=== PATIENT | male | born 1940 | race Caucasian/White ===

== ENCOUNTER 2016-07-17 12:14 | Observation (INO) ==
[2016-07-17] MEDS ORDERED: VANCOMYCIN 1,000 MG in 0.9 % SODIUM CHLORIDE 250 ML IV ONE (12:43)
[2016-07-17] MEDS ORDERED: PIPERACILLIN SODIUM/TAZOBACTAM 3.375 GM in DEXTROSE 5% IN WATER 50 ML IV SCH ×3 (12:45→15:37)
[2016-07-17 13:38] LABS: Basophils # (Auto) 0 K/mcL (0.0-0.3); Basophils % (Auto) 0.2 % (0.0-2.0); Eosinophils # (Auto) 0.1 K/mcL (0.0-0.7); Eosinophils % (Auto) 1.2 % (0.0-7.0); Granulocytes % (Auto) 80.1 % (38.0-78.0); Lymphocytes # (Auto) 0.7 K/mcL (1.5-4.8); Lymphocytes % (Auto) 9.8 % (15.5-49.0); Mean Cell Volume 87.8 fL (80.0-100.0); Mean Corpuscular HGB Conc 32.1 g/dL (31.0-36.0); Mean Corpuscular Hemoglobin 28.2 pg (26.0-34.0); Monocytes # (Auto) 0.6 K/mcL (0.1-0.9); Monocytes % (Auto) 8.7 % (1.0-9.0); Platelet Count 319 K/mcL (140-440); RBC 3.04 M/mcL (4.50-5.90)
--- NOTE | 2016-07-17 13:49 | XRay Report ---
CLINICAL INFORMATION: Calcaneal cutaneous ulcer COMPARISON: None. FINDINGS: Moderate pes planus is appreciated. There is no specific radiographic evidence of osteomyelitis or other focal osseous abnormality. Mild degenerative changes noted in the MTT and interphalangeal joints. There is moderate diffuse soft tissue swelling - particularly the forefoot and midfoot compatible with edema or cellulitis. IMPRESSION: No specific evidence of osteomyelitis. Diffuse forefoot and midfoot soft tissue swelling is suggestive of edema or cellulitis. Interpreted and Authenticated by: Jose Manuel Chow 07/17/16
--- NOTE | 2016-07-17 13:51 | XRay Report ---
CLINICAL INFORMATION: Cough COMPARISON: 04/13/2016 portable chest FINDINGS: The heart is mildly enlarged, but unchanged. Mediastinum and pulmonary vessels are normal. Lungs are clear. No effusions. Malunified old left-sided rib fractures seen - as before. IMPRESSION: Mild stable cardiomegaly. No acute disease Interpreted and Authenticated by: Jose Manuel Chow 07/17/16
--- NOTE | 2016-07-17 13:55 | XRay Report ---
CLINICAL INFORMATION: Cutaneous calcaneal ulcer COMPARISON: None. FINDINGS: There is no specific radiographic evidence of osteomyelitis or other focal osseous abnormalities. Pes planus is noted. There is mild degenerative change in the MTT and interphalangeal joints. Moderate diffuse soft tissue swelling noted in the forefoot and midfoot. IMPRESSION: Forefoot and midfoot soft tissue swelling typically indicative of cellulitis or edema. No specific radiographic evidence of osteomyelitis. Interpreted and Authenticated by: Jose Manuel Chow 07/17/16
[2016-07-17 14:01] LABS: ALT/SGPT 8 U/l (0-40); Albumin 3.2 gm/dL (3.2-5.2); Albumin/Globulin Ratio 1.1 (1.0-2.3); Alkaline Phosphatase 65 U/L (39-117); Blood Urea Nitrogen 59 mg/dl (8-23)
[2016-07-17 14:09] LABS: Estimated Average Glucose(eAG) 212 mg/dL
[2016-07-17] MEDS ORDERED: MAGNESIUM HYDROXIDE 30 ML ORAL.SUSP PO PRN (15:37)
[2016-07-17] MEDS ORDERED: DEXTROSE 50% 50 ML VIAL IV PRN (15:37)
[2016-07-17] MEDS ORDERED: VANCOMYCIN PER PHARMACY IV ONE (15:37)
[2016-07-17] MEDS ORDERED: NALOXONE HCL 0.4 MG/ML VIAL IV PRN (15:37)
[2016-07-17] MEDS ORDERED: ONDANSETRON 4 MG/2 ML VIAL IV PRN (15:37)
[2016-07-17] MEDS ORDERED: DOCUSATE SODIUM 100 MG CAPSULE PO PRN (15:37)
--- NOTE | 2016-07-17 15:55 | Internal Med History&Physical ---
Medical - H&P: HPI Patient information: Note initiated : 07/17/16 at 3:48 pm Service Date, if different from initiated Date: [] Patient: Herve Curry 75 y/o M admitted on 07/17/16 for Heel Pressure Ulcers Bilateral. Chief Complaint: [] History of present illness: Mr. Curry is a 75 year old male as sent over to the ER from the wound care clinic today, for significantly worsening bilateral heel decubiti, in the setting of uncontrolled diabetes. The patient also reported fever at the long term, cough. is ER evaluation was fairly unremarkable except that he did have a significant drop in his hematocrit. the patient is mostly nonverbal He is currently living the ID nursing facility , as his cannot really deal with his behavior issues anymore. He had mild heel decubiti before, and was followed at the wound care clinic, and was doing quite well. However over the last couple of weeks, his feels like he is spending all of his time in a wheelchair with his heels bumping up against the footplates She says the staff really have no luck keeping him in bed, as he gets very agitated when he cannot get out of bed. She believes they started him on twice a day morphine recently, as they decided perhaps some of his behaviors were due to pain, and that does seem to help somewhat. However, today she went to visit him, and he had large blisters on both heels and a very swollen and red left foot. He was sent in to see Dr. Anderson in the wound care clinic today, who sent him over to the emergency room for consideration of admission.The patient is reallyunable or unwilling to participate in the history. He denies significant pain. His says he has not complained of recent fevers or chills, headaches or dizziness, sore throat or cough, chest pain or shortness of breath, GI or symptoms. However she is not sure he would tell anyone if he did have those problems. She has noticed some increased lower extremity edema lately. Medical History likely dementia. Decubitus Ulcer (Chronic) Diabetes mellitus (Chronic) Fracture of both hips (Acute) History of skin cancer (Chronic) 04/21/2010 Pre-cancer spots removed History of malignant neoplasm of skin (Chronic) 07/04/2010 Melanoma forehead Urinary incontinence (Chronic) 12/18/2012 Closed rib fracture (Chronic) 03/16/2014 5-10 Lumbosacral spondylosis without myelopathy (Chronic) Low back pain (Chronic) dorsal column stimulator, pain clinic injections Closed hip fracture (Chronic) 12/09/2014-Left Hip Diabetes mellitus, type II (Chronic) 12/27/1993 Insulin Dependent CVA (cerebrovascular accident) (Chronic) 02/2004, 04/2004 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 Spinal cord surgery: 03/01/2010, 10/24/2010, 12/14 Medial branch block, facet joint injection; 10/24/2010: RFTC Nerve Burning Back History of knee surgery (Chronic) 10/25/05 Rt. arthroscopy History of knee replacement (Chronic) Jul 2008 History of hernia surgery (Chronic) 12/1986, 05/1987, 04/1995 History of colonoscopy (Chronic) 09/25/2012 Micro: Multiple Polyps. Colonic Polyps History of appendectomy (Chronic) childhood Medication List Lis C 500 mg PO Eye Cap PO Tanner Red 500 mg PO Prilosec Oral PO Vitamin B12 1000 mcg PO amitriptyline 25 mg tablet 25 mg PO QHS (his thinks this may have been stopped) amlodipine 5 mg tablet 5 mg PO QDAY aspirin 324 mg mg chewable tablet 162 mg (2 x 81 mg) PO QDAY beta carotene 25,000 unit capsule 25,000 units PO QDAY chromium picolinate 500 mcg capsule 500 mcg PO QDAY furosemide 20 mg tablet 40 mg PO QDAY insulin glargine 100 unit/mL subcutaneous solution 25 units (0.35 mL) Sub-Q QHS insulin lispro - novoLog 15 units subcutaneous 3 times a day losartan 50 mg tablet 50 mg PO BID multivitamin PO oxybutynin chloride ER 10 mg tablet,extended release 24 hr 10 mg PO QDAY (or Vesicare 5 mg daily) silver sulfadiazine 1 % topical cream 1 applic Topical QDAY silver sulfadiazine 1 % topical cream 1 applic Topical BID simvastatin 20 mg tablet 20 mg PO QPM valproic acid 250 mg twice a day Cranberry tabs 1 by mouth twice a dayOmeprazole 20 mg before breakfast Senna 2 tabs daily at bedtime Abilify 10 mg every morning Melatonin 3 mg 2 tabs daily at bedtime MiraLAX 17 g when necessary Psyllium 3 capsules twice a day Allergies/Adverse Reactions meperidine [From Demerol] Allergy (Unknown, Verified 04/12/15 14:01) Unknown tape Allergy (Unknown, Uncoded 04/12/15 14:01) Unknown Family History Sister Malignant neoplasm of breast Unknown Congestive heart failure Mother Dementia, Onset Age: 87 of complications of the same , the patient's also think she had heart issues. Cardiac disease Brother Cerebrovascular accident The patient's grandmother had diabetes Social History Smoking Status: Former smoker, and quit 20 years ago. He quit alcohol many years ago. He currently lives at the ID nursing facility. He does not use drugs. Medical - H&P: Meds Home Medications Medication Instructions Recorded Confirmed Type beta carotene 25,000 unit capsule 25,000 unit PO QDAY cap 02/22/15 07/17/16 History blood sugar diagnostic strips See Dose Instructions .ROUTE 02/22/15 07/17/16 History .MEDSUPPLY multivitamin tablet 1 each PO DAILY 02/22/15 07/17/16 History omeprazole 20 mg capsule,delayed 20 mg PO ACB 02/22/15 07/17/16 History release Eye Cap 1 drp OD DAILY 07/05/15 07/17/16 History Vitamin B-12 1,000 mcg PO QHS 07/05/15 07/17/16 History ascorbate calcium 500 mg tablet 1,000 mg PO DAILY 07/05/15 07/17/16 History chromium picolinate 500 mcg capsule 200 mcg PO QDAY 07/05/15 07/17/16 History insulin glargine 100 unit/mL 25 unit SUB-Q QHS ml 07/05/15 07/17/16 History subcutaneous solution Cranberry Conc/C/Bacill Coag 1 each PO BID 04/11/16 07/17/16 History [Cranberry Tablet] Psyllium Husk [Fiber Laxative] 3 capsule PO BID 04/11/16 07/17/16 History Sennosides [Senna Laxative] 2 tab PO HS 04/11/16 07/17/16 History Solifenacin Succinate [Vesicare] 5 mg PO DAILY 04/11/16 07/17/16 History Aripiprazole [Abilify] 10 mg PO QAM 07/17/16 07/17/16 History Furosemide [Lasix] 20 mg PO QAM 07/17/16 07/17/16 History Insulin Aspart [Novolog Flexpen] 15 unit SQ TID 07/17/16 07/17/16 History Melatonin/Pyridoxine HCl (B6) 2 each PO QHS 07/17/16 07/17/16 History [Melatonin 3 mg Tablet] Polyethylene Glycol 3350 [Miralax] 17 gm PO ONCE 07/17/16 07/17/16 History Valproic Acid (As Sodium Salt) 250 mg PO BID 07/17/16 07/17/16 History [Valproic Acid] Vitamin E [Vitamin E] 800 mg QAM 07/17/16 07/17/16 History Allergies Allergy/AdvReac Type Severity Reaction Status Date / Time meperidine [From Demerol] AdvReac Intermediate Agitated Verified 07/17/16 17:52 quetiapine [From Seroquel] AdvReac Intermediate Agitated Verified 07/17/16 17:52 Medical - H&P: Exam - Constitutional Vitals: Temp Pulse Resp BP Pulse Ox 98.7 F 88 20 145/66 98 07/17/16 12:15 07/17/16 15:07 07/17/16 15:07 07/17/16 15:07 07/17/16 15:07 Exam: On exam, he is elderly man in no acute distress. He doespull on the bed without rails periodically, and nonverbally asked his to let him get up from bed.head: Normocephalic, atraumatic. Eyes: PERRLA, EOMI, anicteric. Ears: There is bilateral cerumen occluding the TMs. Pharynx: Shows dry mucosa. Teeth are in fair condition. Neck: Is supple, without obvious JVD, thyromegaly, bruits, lymphadenopathy. Cardiac exam: Shows regular rate and rhythm, with normal S1 and S2. No murmurs , rubs, gallops are noted. Lungs are clear to auscultation, without obvious rales, rhonchi, wheezes. Abdomen: Is soft and nontender with no obvious masses. Bowel sounds are active. Extremities: The right foot has a very large right heel blister which appears to ruptured. There is no significant surrounding erythema. The left foot also has a very large blister which appears intact. There is swelling of the foot, as well as increased warmth and tenderness and redness. The redness extends across the dorsum of the foot and up onto the medial maloney. Neurologic: The patient is awake, and follows most commands, but rarely speaks. It is unclear if he is oriented, and his family feels he is often confused and forgetful. Motor exam is grossly nonfocal. Medical - H&P: Reslt - Labs CBC & Chem 7: 07/17/16 13:00 07/17/16 13:00 Labs: lactic acid is normal at 0.9 BNP is elevated at 1170 Right foot x-ray shows diffuse forefoot and midfoot soft tissue swelling suggestive of edema or cellulitis. X-ray of the left foot has similar findings. chest x-ray shows mild stable cardiomegaly, and otherwise no acute disease. Medical - H&P: A/P (1) Decubitus ulcer of heel, bilateral Current visit: Yes Status: Acute (2) DM (diabetes mellitus), type 2, uncontrolled Current visit: Yes Status: Acute (3) History of CVA (cerebrovascular accident) Current visit: Yes Status: Acute (4) CKD (chronic kidney disease) Current visit: Yes Status: Acute (5) Anemia of acute infection Current visit: Yes Status: Acute #1. Infectious disease. -This patient presents with bilateral foot swelling suggestive of cellulitis, in the setting of uncontrolled diabetes. He also reports recent fever, and does have a history of a UTI.urine and blood cultures are pending. -Dr. Anderson's evaluated the patient, I will taken to the OR for debridement tomorrow. For tonight, the patient will be covered with IV Zosyn and vancomycin. #2. Renal. This patient presents with acute on chronic renal insufficiency, associated with hyperkalemia. Follow as we hydrate. #3. Endocrine. -Type 2 diabetes, poorly controlled, as evidenced by elevated A1c. Continue insulin and additional sliding scale. -Carbohydrate consistent diet. #4. Hematologic. -Anemia chronic, with fairly acute worsening. check stool cards. The patient may well have bone marrow suppression. #5. History of chronic constipation. #6. History of shingles. #7. Neurologic. -Patient has history of past stroke. #8. CODE STATUS: The patient's says she wants to discuss this further with her sons She is leaning towards a no code order, but is not quite ready to give that order. this visit took approximately 65 minutes, to review the patient's case with the ER Betty, as well as with Dr. Anderson, interview and examine the patient and discussed plan of care of his family, and write orders.
[2016-07-17] MEDS: 0.45 % SODIUM CHLORIDE 1,000 ML IV SCH (17:01)
[2016-07-17] MEDS: PIPERACILLIN SODIUM/TAZOBACTAM 2.25 GM in DEXTROSE 5% IN WATER 50 ML IV SCH ×2 (18:03→23:40)
[2016-07-17] MEDS: INSULIN LISPRO 1 UNIT/0.01 ML UNIT SQ SCH ×3 (18:34→21:39)
--- NOTE | 2016-07-17 20:35 | General Surgery Consult Note ---
History of Present Illness Patient information: Note initiated : 07/17/16 at 8:24 pm Service Date, if different from initiated Date: [] Patient: Herve Curry 75 y/o M admitted on 07/17/16 for Heel Pressure Ulcers Bilateral. Chief Complaint: []Established patient at wound clinic. He was seen in clinic for routine f/u today. There was an INTERVAL CHANGE in his condition since last encounter in clinic two weeks ago. He had sustained a non syncopal fall one week ago. Evaluated at [facility] and sent back to [facility] after CT scan and approximation of right fore head laceration. Patient since then had been mainly sitting in his chair or recliner and hitting his heels and legs against chair. The pressure ulcer site of right posterior heel had almost healed, BUT NOW there is a new lesion with infected large, painful blister at the site. Additionally he has a large new blister over his left posterior heel site. His blood sugars are high and he has had fever. He needs IV antibiotics, stabilization of his medical problems and surgical debridement. I spoke at length with his LEYDA, and his surgery is scheduled for 2016 Review of Systems - Constitutional fever(s), frequent falls, lethargy, malaise, other (Infected pressure ulcer site right heel and new blister left posterior heel ) - Respiratory cough, chest congestion - Integumentary new lesions, non-healing lesions, wounds - Endocrine other (Elevated blood sugars. Uncontrolled diabetes ) Past History Past medical history: IDDM, HTN , Pressure Ulcer heel. Medications and Allergies Home Medications Medication Instructions Recorded Confirmed Type beta carotene 25,000 unit capsule 25,000 unit PO QDAY cap 02/22/15 07/17/16 History blood sugar diagnostic strips See Dose Instructions .ROUTE 02/22/15 07/17/16 History .MEDSUPPLY multivitamin tablet 1 each PO DAILY 02/22/15 07/17/16 History omeprazole 20 mg capsule,delayed 20 mg PO ACB 02/22/15 07/17/16 History release Eye Cap 1 drp OD DAILY 07/05/15 07/17/16 History Vitamin B-12 1,000 mcg PO QHS 07/05/15 07/17/16 History ascorbate calcium 500 mg tablet 1,000 mg PO DAILY 07/05/15 07/17/16 History chromium picolinate 500 mcg capsule 200 mcg PO QDAY 07/05/15 07/17/16 History insulin glargine 100 unit/mL 25 unit SUB-Q QHS ml 07/05/15 07/17/16 History subcutaneous solution Cranberry Conc/C/Bacill Coag 1 each PO BID 04/11/16 07/17/16 History [Cranberry Tablet] Psyllium Husk [Fiber Laxative] 3 capsule PO BID 04/11/16 07/17/16 History Sennosides [Senna Laxative] 2 tab PO HS 04/11/16 07/17/16 History Solifenacin Succinate [Vesicare] 5 mg PO DAILY 04/11/16 07/17/16 History Aripiprazole [Abilify] 10 mg PO QAM 07/17/16 07/17/16 History Furosemide [Lasix] 20 mg PO QAM 07/17/16 07/17/16 History Insulin Aspart [Novolog Flexpen] 15 unit SQ TID 07/17/16 07/17/16 History Melatonin/Pyridoxine HCl (B6) 2 each PO QHS 07/17/16 07/17/16 History [Melatonin 3 mg Tablet] Polyethylene Glycol 3350 [Miralax] 17 gm PO ONCE 07/17/16 07/17/16 History Valproic Acid (As Sodium Salt) 250 mg PO BID 07/17/16 07/17/16 History [Valproic Acid] Vitamin E [Vitamin E] 800 mg QAM 07/17/16 07/17/16 History Allergies Allergy/AdvReac Type Severity Reaction Status Date / Time meperidine [From Demerol] AdvReac Intermediate Agitated Verified 07/17/16 17:52 quetiapine [From Seroquel] AdvReac Intermediate Agitated Verified 07/17/16 17:52 Exam Temp Pulse Resp BP Pulse Ox 98.2 F 92 H 20 156/74 95 07/17/16 16:00 07/17/16 16:00 07/17/16 15:50 07/17/16 16:00 07/17/16 16:00 - General physical appearance well developed, well nourished, moderate pain - Eyes PERRL, normal ocular movement - ENT normal pinna, normal nares, normal mucosa, no congestion - Head Head exam IM: Present: atraumatic, normal inspection, normocephalic - Neck no masses, no bruits, trachea midline, no lymphadectomy, no venous distension - Cardiovascular Cardiovascular exam IM: Present: normal rate and rhythm, irregular rhythm - Respiratory normal expansion absent breath sounds: bilateral (Diminshed breath sounds both lung bases) - Abdomen Abdomen: Present: soft, non tender, bowel sounds - Integumentary Present: other (Ingected wound right psoterir heel with suppuration. Blister LEFT posterior heel ) - Neurologic Present: combative, confused, other (Moves all extremities and non focal normal neurological examination) - Musculoskeletal Present: other (No evidence of fractures both feet. ) Results - Labs 07/17/16 13:00 07/17/16 13:00 All other labs normal. Assessment and Plan (1) Pressure ulcer, heel, left, unstageable For surgical debridement , lavage and tissue samples for culture and pathology. Status: Acute (2) Pressure ulcer, heel, right, unstageable Status: Acute Priority: High (3) Decubitus ulcer of heel, bilateral Status: Acute Priority: High
[2016-07-17] MEDS ORDERED: NON FORMULARY MEDICATION 1 DOSE MISCELL (Cranberry Conc/C/Bacill Coag [Cranberry Tablet] 1 PO SCH (21:00)
[2016-07-17] MEDS: AMITRIPTYLINE 25 MG TABLET PO SCH (21:38)
[2016-07-17] MEDS: SIMVASTATIN 20 MG TABLET PO SCH (21:38)
[2016-07-17] MEDS: DIVALPROEX SODIUM 250 MG TAB.ER.24H PO SCH (21:38)
[2016-07-17] MEDS: SENNOSIDES 1 TABLET PO SCH (21:39)
[2016-07-17] MEDS: INSULIN GLARGINE, HUMAN 1 UNIT/0.01 ML SQ SCH (21:39)
[2016-07-17] MEDS: HEPARIN 5,000 UNIT/ML VIAL SQ SCH (21:39)
[2016-07-17] MEDS: MELATONIN PO SCH (21:49)
[2016-07-17] MEDS: PYRIDOXINE HCL PO SCH (21:49)
[2016-07-17] MEDS: 0.9 % SODIUM CHLORIDE 10 ML SYRINGE IV SCH (21:50)
[2016-07-17] MEDS: ACETAMINOPHEN 325 MG TABLET PO PRN (22:58)
[2016-07-18] MEDS: 0.45 % SODIUM CHLORIDE 1,000 ML IV SCH ×4 (01:13→23:40)
[2016-07-18 05:26] LABS: Mean Cell Volume 88.3 fL (80.0-100.0); Mean Corpuscular HGB Conc 32.1 g/dL (31.0-36.0); Mean Corpuscular Hemoglobin 28.3 pg (26.0-34.0); Platelet Count 328 K/mcL (140-440); RBC 3.15 M/mcL (4.50-5.90); Red Cell Distribution Width 15.1 % (11.5-14.5)
[2016-07-18 05:43] LABS: ALT/SGPT 7 U/l (0-40); Albumin 3.1 gm/dL (3.2-5.2); Alkaline Phosphatase 61 U/L (39-117); Bilirubin,Direct < 0.2 mg/dL (0.0-0.3); Blood Urea Nitrogen 57 mg/dl (8-23); Gamma Glutamyl Transpeptidase 11 U/L (8-61); Phosphorous 3.8 mg/dL (2.7-4.5); Uric Acid 7.2 mg/dL (2.5-8.0); Vancomycin,Random 10.1 ug/ml
[2016-07-18] MEDS: PIPERACILLIN SODIUM/TAZOBACTAM 2.25 GM in DEXTROSE 5% IN WATER 50 ML IV SCH ×4 (05:56→23:39)
[2016-07-18] MEDS: 0.9 % SODIUM CHLORIDE 10 ML SYRINGE IV SCH ×4 (05:56→22:15)
[2016-07-18 06:40] LABS: Anisocytosis 1+ (NONE SEEN); Band Neutrophils % 6 % (0-10); Eosinophils % (Manual) 2 % (0-7); Lymphocytes % 11 % (15-49); Monocytes % (Manual) 2 % (1-9); Platelet Estimate NORMAL (NORMAL); RBC Morphology ABNORM (NORMAL); Segmented Neutrophils % 79 % (38-78)
[2016-07-18] MEDS ORDERED: OMEPRAZOLE 20 MG CAPSULE PO SCH (07:30)
[2016-07-18] MEDS ORDERED: PANTOPRAZOLE 40 MG TABLET PO SCH (07:30)
[2016-07-18] MEDS ORDERED: DEXTROSE 50% 50 ML VIAL IV ONE (07:41)
[2016-07-18] MEDS ORDERED: INSULIN LISPRO 1 UNIT/0.01 ML UNIT SQ STA (07:42)
[2016-07-18] MEDS: INSULIN LISPRO 1 UNIT/0.01 ML UNIT SQ SCH ×7 (07:44→20:50)
[2016-07-18] MEDS: HEPARIN 5,000 UNIT/ML VIAL SQ SCH ×2 (08:02→20:49)
[2016-07-18] MEDS ORDERED: Solifenacin Succinate [Vesicare] 5 MG Tablet PO SCH (09:00)
[2016-07-18] MEDS ORDERED: amLODIPine 5 MG TABLET PO SCH (09:00)
[2016-07-18] MEDS ORDERED: PSYLLIUM HUSK 6 GM PACKET PO SCH (09:00)
[2016-07-18] MEDS ORDERED: MULTIVIT,THER IRON,CA,FA & MIN 1 TABLET PO SCH (09:00)
[2016-07-18] MEDS ORDERED: ASCORBIC ACID 500 MG TABLET PO SCH (09:00)
[2016-07-18] MEDS ORDERED: EYE OD SCH (09:00)
[2016-07-18] MEDS ORDERED: CYANOCOBALAMIN (VITAMIN B-12) 500 MCG TABLET PO SCH (09:00)
[2016-07-18] MEDS ORDERED: ARIPIPRAZOLE 5 MG TABLET PO SCH (09:00)
[2016-07-18] MEDS ORDERED: ASPIRIN 81 MG TAB.CHEW PO SCH (09:00)
[2016-07-18] MEDS ORDERED: FUROSEMIDE 20 MG TABLET PO SCH (09:00)
[2016-07-18] MEDS ORDERED: CHROMIUM PICOLINATE 200 MCG PO SCH (09:00)
[2016-07-18] MEDS ORDERED: VANCOMYCIN 1,000 MG in 0.9 % SODIUM CHLORIDE 250 ML IV ONE (09:00)
--- NOTE | 2016-07-18 09:36 | Emergency Department Note ---
General Adult HPI - General Chief complaint: Extremity Injury, Lower Stated complaint: Heel pressure ulcers bilateral Time Seen by Provider: 07/17/16 12:42 Source: family, other Mode of arrival: wheelchair Limitations: no limitations - History of Present Illness HPI Narrative: 75-year-old male from [facility] with several issues: 1. Cough congestion and wheeze 2 days. No fever. 2. Wounds at heels. Followed by wound care- pictures are on file and reviewed by me, recently bandaged. They request admission for IV antibiotics and surgical debridement 3. Numerous falls. He is on Abilify/morphine for aggressive behavior. all history is from chart and his ; his dementia limits history and review of systems - Related Data Home Medications Medication Instructions Recorded Confirmed beta carotene 25,000 unit capsule 25,000 unit PO QDAY cap 02/22/15 07/17/16 blood sugar diagnostic strips See Dose Instructions .ROUTE 02/22/15 07/17/16 .MEDSUPPLY multivitamin tablet 1 each PO DAILY 02/22/15 07/17/16 omeprazole 20 mg capsule,delayed 20 mg PO ACB 02/22/15 07/17/16 release Eye Cap 1 drp OD DAILY 07/05/15 07/17/16 Vitamin B-12 1,000 mcg PO QHS 07/05/15 07/17/16 ascorbate calcium 500 mg tablet 1,000 mg PO DAILY 07/05/15 07/17/16 chromium picolinate 500 mcg capsule 200 mcg PO QDAY 07/05/15 07/17/16 insulin glargine 100 unit/mL 25 unit SUB-Q QHS ml 07/05/15 07/17/16 subcutaneous solution Cranberry Conc/C/Bacill Coag 1 each PO BID 04/11/16 07/17/16 [Cranberry Tablet] Psyllium Husk [Fiber Laxative] 3 capsule PO BID 04/11/16 07/17/16 Sennosides [Senna Laxative] 2 tab PO HS 04/11/16 07/17/16 Solifenacin Succinate [Vesicare] 5 mg PO DAILY 04/11/16 07/17/16 Aripiprazole [Abilify] 10 mg PO QAM 07/17/16 07/17/16 Furosemide [Lasix] 20 mg PO QAM 07/17/16 07/17/16 Insulin Aspart [Novolog Flexpen] 15 unit SQ TID 07/17/16 07/17/16 Melatonin/Pyridoxine HCl (B6) 2 each PO QHS 07/17/16 07/17/16 [Melatonin 3 mg Tablet] Polyethylene Glycol 3350 [Miralax] 17 gm PO ONCE 07/17/16 07/17/16 Valproic Acid (As Sodium Salt) 250 mg PO BID 07/17/16 07/17/16 [Valproic Acid] Vitamin E [Vitamin E] 800 mg QAM 07/17/16 07/17/16 Cyanocobalamin (Vitamin B-12) 1,000 mcg SL DAILY 07/18/16 07/18/16 [Vitamin B-12] Previous Rx's Medication Instructions Recorded amlodipine 5 mg tablet 5 mg PO QDAY #90 tab 05/12/15 simvastatin 20 mg tablet 20 mg PO QPM #90 tab 10/18/15 amitriptyline 25 mg tablet 25 mg PO QHS #30 tab 12/01/15 Aspirin 324 mg PO QDAY 30 Days 04/16/16 Allergies Allergy/AdvReac Type Severity Reaction Status Date / Time meperidine [From Demerol] AdvReac Intermediate Agitated Verified 07/17/16 17:52 quetiapine [From Seroquel] AdvReac Intermediate Agitated Verified 07/17/16 17:52 Review of Systems Limitations: ROS unobtainable due to patients medical condition Past Medical History - Past Medical History Attestation: Yes: The following information was validated with the patient. Medical history: Reports: arthritis, CVA, dementia, diabetes, hyperlipidemia, hypertension, other (BPH) Surgical history ED: Reports: appendectomy, herniorrhaphy, hip replacement, knee replacement, vascular surgery, other (TURP) - Social History smoking status: Former smoker Physical Exam Patient is nonverbal mostly but will answer basic questions- poor historian. Patient will follow commands and cooperative for exam . Normocephalic atraumatic. Conjunctiva clear sclerae white and anicteric. No nasal discharge or congestion. Oropharynx pink and moist. Neck is supple without lymphadenopathy or thyromegaly. Heart is regular rate and rhythm no murmurs appreciated. Lungs are clear to auscultation with occasional productive cough. No rales rhonchi. Abdomen is soft nondistended but he does have bony tenderness around his periumbilical area- this is mild diffuse. Bilateral feet are bandaged for here for heel ulcers- reviewed pictures with Dr. Anderson as well as his note from clinic. +2 radial pulse. - General Limitations: no limitations Course Vital Signs Temperature 98.7 F 07/17/16 12:15 Pulse Rate 88 07/17/16 12:15 Respiratory Rate 16 07/17/16 12:15 Blood Pressure 143/74 07/17/16 12:15 Pulse Oximetry (%) 99 07/17/16 12:15 Temperature 98.3 F 07/18/16 04:00 Pulse Rate 80 07/18/16 04:00 Respiratory Rate 24 07/18/16 04:00 Blood Pressure 149/71 07/18/16 04:00 Pulse Oximetry (%) 90 07/18/16 07:40 Medical Decision Making - Medical Records Medical records reviewed: Yes I reviewed the patient's medical records. - Lab Data Lab results reviewed: Yes I reviewed the patient's lab results. Result diagrams: 07/18/16 03:08 07/18/16 03:08 Lab Results 07/17/16 07/17/16 07/17/16 Range/Units 13:00 13:00 13:00 WBC 6.8 (4.5-11.0) K/mcL RBC 3.04 L (4.50-5.90) M/mcL Hgb 8.6 L (13.5-16.5) g/dL Hct 26.7 L (41.0-55.0) % MCV 87.8 (80.0-100.0) fL MCH 28.2 (26.0-34.0) pg MCHC 32.1 (31.0-36.0) g/dL RDW 15.0 H (11.5-14.5) % Plt Count 319 (140-440) K/mcL MPV 7.9 (7.4-10.4) fL Gran % 80.1 H (38.0-78.0) % Lymph % (Auto) 9.8 L (15.5-49.0) % Hemphill % (Auto) 8.7 (1.0-9.0) % Eos % (Auto) 1.2 (0.0-7.0) % Baso % (Auto) 0.2 (0.0-2.0) % Gran # 5.5 (1.8-8.0) K/mcL Lymph # 0.7 L (1.5-4.8) K/mcL Hemphill # 0.6 (0.1-0.9) K/mcL Eos # 0.1 (0.0-0.7) K/mcL Baso # 0 (0.0-0.3) K/mcL VBG Lactic Acid 0.9 (0.5-2.2) mmol/L Sodium 139 (133-145) mmol/L Potassium 5.5 H (3.3-5.1) mmol/L Chloride 104 (96-108) mmol/L Carbon Dioxide 23 (22-30) mmol/L Anion Gap 12.0 (8-16) BUN 59 H (8-23) mg/dl Creatinine 2.5 H (0.7-1.2) mg/dl GFR Calculation 24 Glucose 339 H (70-105) mg/dL Hemoglobin A1c 9.0 H (4.0-6.0) % HGB Estim Average Glucose 212 mg/dL Calcium 8.6 (8.6-10.4) mg/dl Total Bilirubin < 0.2 (0.0-1.0) mg/dL AST 10 (0-37) U/l ALT 8 (0-40) U/l Alkaline Phosphatase 65 (39-117) U/L NT-Pro-B Natriuret Pep 1170.0 H (0-450) pg/ml Total Protein 6.1 (5.9-8.4) gm/dL Albumin 3.2 (3.2-5.2) gm/dL Globulin 2.9 (2.2-3.7) gm/dL Albumin/Globulin Ratio 1.1 (1.0-2.3) - Radiology Data Radiology results reviewed: Yes I reviewed the patient's radiology results. Chest x-ray shows no pneumonia X-ray of bilateral feet shows calcified vessels but otherwise unremarkable Disposition Clinical Impression: Cellulitis Qualifiers: Site of cellulitis: extremity Site of cellulitis of extremity: lower extremity Laterality: unspecified laterality Qualified Code(s): L03.119 - Cellulitis of unspecified part of limb Summary: Discussed with Dr. Damian and Dr. Anderson- given dose of antibiotics here in the ER. Will be admitted for surgical wound and medical care Disposition: Xfer As Inpt ([facility]) Condition: Undetermined
[2016-07-18] MEDS: DIVALPROEX SODIUM 250 MG TAB.ER.24H PO SCH ×2 (10:34→20:49)
--- NOTE | 2016-07-18 12:05 | Internal Med Progress Note ---
Medical - PN: Subj Patient information: Note initiated : 07/18/16 at 12:05 pm Service Date, if different from initiated Date: [] Patient: Herve Curry a 75 y/o M admitted on 07/17/16 for Heel Pressure Ulcers Bilateral. July 17, 2016: History of present illness: Mr. Curry is a 75 year old male as sent over to the ER from the wound care clinic today, for significantly worsening bilateral heel decubiti, in the setting of uncontrolled diabetes. The patient also reported fever at the long term, cough. is ER evaluation was fairly unremarkable except that he did have a significant drop in his hematocrit. the patient is mostly nonverbal He is currently living the [facility] , as his cannot really deal with his behavior issues anymore. He had mild heel decubiti before, and was followed at the wound care clinic, and was doing quite well. However over the last couple of weeks, his feels like he is spending all of his time in a wheelchair with his heels bumping up against the footplates She says the staff really have no luck keeping him in bed, as he gets very agitated when he cannot get out of bed. She believes they started him on twice a day morphine recently, as they decided perhaps some of his behaviors were due to pain, and that does seem to help somewhat. However, today she went to visit him, and he had large blisters on both heels and a very swollen and red left foot. He was sent in to see Dr. Anderson in the wound care clinic today, who sent him over to the emergency room for consideration of admission.The patient is really unable or unwilling to participate in the history. He denies significant pain. His says he has not complained of recent fevers or chills, headaches or dizziness, sore throat or cough, chest pain or shortness of breath, GI or symptoms. However she is not sure he would tell anyone if he did have those problems. She has noticed some increased lower extremity edema lately. July 18, 2016: - today, the patient remains mostly nonverbal. He apparently slept very well last night, after receiving a dose of by mouth amitriptyline. His is pleased that he actually slept for a change. He denies pain today. He has been noted to have an increasingly wet sounding cough, but he denies chest pain or shortness of breath, abdominal pain He apparently is a bit belligerent with the staff, and has not wanted to cooperate withgetting a urine sample into a urinal. -He was taken to the OR today for debridement of his heel ulcers. - Constitutional Vitals: Vital Signs Temp Pulse Resp BP Pulse Ox 98.8 F 75 24 155/66 94 07/18/16 08:00 07/18/16 08:00 07/18/16 08:00 07/18/16 08:00 07/18/16 08:00 Period Temp Pulse Resp BP Sys/Yoon Pulse Ox Last 24 Hr 98.2 F-101.5 F 75-105 20-30 149-160/66-74 90-95 Intake and Output 07/17/16 07/18/16 07/18/16 21:59 05:59 13:59 Intake Total 50 / 350 1290 / 1290 Output Total Balance 49 / 349 1287 / 1287 Weight 202 lb Intake & Output: Intake & Output 07/17/16 07/18/16 07/18/16 21:59 05:59 13:59 Intake Total 50 / 350 1290 / 1290 Output Total Balance 49 / 349 1287 / 1287 Weight 202 lb Intake: IV 50 / 50 1050 / 1050 Sodium Chloride 0.45% 1, 1000 / 1000 000 ml @ 100 mls/hr IV . Q10H RUTH Rx#:[id number] Dextrose 5% in Water 50 50 / 50 50 / 50 ml @ 100 mls/hr IV Q6 RUTH with Zosyn 2.25 gm Rx#: [id number] Oral 240 / 240 Output: # of times incontinent of 3 urine Exam: the patient is awake and alert, and in no acute distress. Neck is supple without obvious lymphadenopathy or JVD. Cardiac exam shows regular rate and rhythm. Lungs have rales and rhonchi scattered throughout both lung pichardo He also has a very moist cough. Abdomen: Is soft and nontender. Extremities:the right leg remains fairly markedly swollen and is a little bit red today below the knee on the lateral aspect. The left lower extremity shows decreased erythema and edema.it also appears less tender. Neurologic: The patient remains mostly nonverbal, although he appears able to speak when he wants to.he is fairly uncooperative with staff at times. Medical - PN: Obj Da - Labs CBC & Chem 7: 07/18/16 03:08 07/18/16 10:50 Labs: Abnormal Lab Results 07/18/16 07/18/16 03:08 03:08 RBC 3.15 L Hgb 8.9 L Hct 27.8 L RDW 15.1 H Seg Neutrophils % 79 H Lymphocytes % 11 L WBC Morphology Abnorm A Vacuolated Monocytes 1+ A RBC Morphology Abnorm A Anisocytosis 1+ A Potassium 5.5 H BUN 57 H Creatinine 2.5 H Glucose 125 H Albumin 3.1 L lactic acid is normal at 0.9 BNP is elevated at 1170 Right foot x-ray shows diffuse forefoot and midfoot soft tissue swelling suggestive of edema or cellulitis. X-ray of the left foot has similar findings. chest x-ray shows mild stable cardiomegaly, and otherwise no acute disease. Meds: Medications Acetaminophen (Tylenol) 650 mg PO Q6HP PRN PRN Reason: PAIN/FEVER > 101 Last Admin: 07/17/16 22:58 Dose: 650 mg Amitriptyline HCl (Elavil) 25 mg PO QHS [facility] Last Admin: 07/17/16 21:38 Dose: 25 mg Amlodipine Besylate (Norvasc) 5 mg PO QDAY [facility] Last Admin: 07/18/16 10:34 Dose: Not Given Ascorbic Acid (Vitamin C) 1,000 mg PO DAILY [facility] Last Admin: 07/18/16 08:04 Dose: Not Given Aspirin (Aspirin) 324 mg PO QDAY [facility] Last Admin: 07/18/16 08:04 Dose: Not Given Cyanocobalamin (Vitamin B-12) 1,000 mcg PO DAILY [facility] Last Admin: 07/18/16 08:04 Dose: Not Given Dextrose (Dextrose 50%) 0 ml IV UD PRN PRN Reason: Hypoglycemia Diagnostic Test (Pha) (Accu-Chek) 1 each FS ACHS [facility] Last Admin: 07/18/16 11:19 Dose: 1 each Divalproex Sodium (Depakote Er) 250 mg PO BID [facility] Last Admin: 07/18/16 10:34 Dose: Not Given Docusate Sodium (Colace) 100 mg PO BID PRN PRN Reason: Constipation Furosemide (Lasix) 20 mg PO QAM [facility] Last Admin: 07/18/16 10:34 Dose: Not Given Heparin Sodium (Porcine) (Heparin) 5,000 unit SQ Q12 [facility] Last Admin: 07/18/16 08:02 Dose: Not Given Sodium Chloride (Sodium Chloride 0.45%) 1,000 mls @ 100 mls/hr IV .Q10H [facility] Last Admin: 07/18/16 03:48 Dose: 100 mls/hr Piperacillin Sod/Tazobactam (Sod 2.25 gm/ Dextrose) 50 mls @ 100 mls/hr IV Q6 [facility] Last Admin: 07/18/16 05:56 Dose: 100 mls/hr Insulin Glargine (Lantus) 25 unit SQ HS [facility] Last Admin: 07/17/16 21:39 Dose: 25 unit Insulin Human Lispro (Humalog) 0 unit SQ ACHS [facility] PRN Reason: Protocol Last Admin: 07/18/16 11:19 Dose: Not Given Insulin Human Lispro (Humalog) 15 unit SQ TIDAC [facility] Last Admin: 07/18/16 11:20 Dose: Not Given Iron Carb/Multivit/Political Science Research Assistant/Folic Acid (Multivitamin W/Minerals) 1 tab PO DAILY [facility] Last Admin: 07/18/16 08:04 Dose: Not Given Magnesium Hydroxide (Milk Of Magnesia) 30 ml PO DAILYP PRN PRN Reason: Constipation Morphine Sulfate (Morphine) 1 mg IV Q4HP PRN PRN Reason: Pain Naloxone HCl (Narcan) 0.1 mg IV Q2MIN PRN PRN Reason: Opiate Reversal Ondansetron HCl (Zofran) 4 mg IV Q6HP PRN PRN Reason: Nausea And Vomiting Pantoprazole Sodium (Protonix) 40 mg PO QAMAC [facility] Last Admin: 07/18/16 08:02 Dose: Not Given Solifenacin Succinate [Vesicare] 5 Mg Tablet 1 dose PO DAILY [facility] Last Admin: 07/18/16 10:35 Dose: Not Given Melatonin/Pyridoxine Hcl (B6) [Melatonin 3 Mg Tab 2 dose PO HS [facility] Last Admin: 07/17/16 21:49 Dose: Not Given Psyllium Hydrophilic Mucilloid (Metamucil) 6 gm PO DAILY [facility] Last Admin: 07/18/16 08:04 Dose: Not Given Senna (Senokot) 2 tab PO [facility] Last Admin: 07/17/16 21:39 Dose: 2 tab Simvastatin (Zocor) 20 mg PO HS [facility] Last Admin: 07/17/16 21:38 Dose: 20 mg Sodium Chloride (Saline Flush) 10 ml IV Q8 [facility] Last Admin: 07/18/16 05:56 Dose: Not Given Medical - PN: A/P - Time Spent With Patient Total time spent is greater than 50% in coordination of care (as documented) at patient's floor/unit and/or counseling patient: (1) Decubitus ulcer of heel, bilateral Status: Acute Current Visit: Yes (2) DM (diabetes mellitus), type 2, uncontrolled Status: Acute Current Visit: Yes (3) History of CVA (cerebrovascular accident) Status: Acute Current Visit: Yes (4) CKD (chronic kidney disease) Status: Acute Current Visit: Yes (5) Anemia of acute infection Status: Acute Current Visit: Yes - Narrative A/P Narrative: #1. Infectious disease. -This patient presents with bilateral foot swelling suggestive of cellulitis, in the setting of uncontrolled diabetes. He also reports recent fever, and does have a history of a UTI.urine and blood cultures are pending. -he is now status post debridement. Continue IV Zosyn and vancomycin. -continue IV antibiotics, and local wound care. Dr. Anderson feels the patient may be ready for discharge tomorrow. -cultures are pending. #2. Renal. This patient presents with acute on chronic renal insufficiency, associated with hyperkalemia. this does not appear much improved today. The patientmay have progressive renal decline. Insulin and glucose were given today to try to bring the potassium down, and this did improve. #3. Endocrine. -Type 2 diabetes, poorly controlled, as evidenced by elevated A1c. Continue insulin and additional sliding scale. glucoses are somewhat labile, varying from 133-346 today. -Carbohydrate consistent diet. #4. Hematologic. -Anemia chronic, with fairly acute worsening. check stool cards. The patient may well have bone marrow suppression. #5. History of chronic constipation. #6. History of shingles. #7. Neurologic. -Patient has history of past stroke. #8. CODE STATUS: The patient's says she wants to discuss this further with her sons She is leaning towards a no code order, but is not quite ready to give that order. #9. Ongoing swelling of the right lower extremity, and the patient is quite sedentary. I think I will check a venous Doppler to rule out DVT. Approximately 30 minutes has been spent so far today, reviewing test results, interviewing and examining the patient, reviewing plan of care with his , and then reviewing his case with Dr. Anderson. Medical - PN: Qual - VTE Deep Vein Thrombosis/Pulmonary Embolism Present on Admission: No
[2016-07-18] MEDS ORDERED: FUROSEMIDE 40 MG/4 ML VIAL IV ONE (12:41)
[2016-07-18] MEDS ORDERED: MIDAZOLAM 5 MG/5 ML VIAL ONE (12:41)
[2016-07-18] MEDS ORDERED: GENTAMICIN SULFATE 80 MG/2 ML VIAL IR ONE (12:54)
[2016-07-18] MEDS ORDERED: BACITRACIN 50,000 UNIT VIAL IR ONE (13:56)
[2016-07-18] MEDS ORDERED: CLINDAMYCIN 600 MG/4 ML VIAL IR ONE (13:56)
[2016-07-18] MEDS ORDERED: BUPIVACAINE W/EPI 0.5% 50 ML VIAL IJ ONE (13:56)
[2016-07-18] MEDS ORDERED: PIPERACILLIN SODIUM/TAZOBACTAM 2.25 GM VIAL IV ONE (17:12)
--- NOTE | 2016-07-18 18:56 | General Surgery Procedure Note ---
Date of procedure: Note initiated : 07/18/16 at 6:54 pm Service Date, if different from initiated Date: [] Pre-op diagnosis: Infected pressure ulcers both heels R > L Post-op diagnosis: same Procedure: Excision debridement. RIGHT posterior heel pressure ulcer tissue for histology and culturesl Findings: Grade 2 to Grade 3 pressure ulcers ( Infected Blisters ) Anesthesia: MAC Surgeon: Lukas Anderson Estimated blood loss: 5 Pathology: other Description of procedure: Excision Debridement and lavage Condition: stable Disposition: floor
[2016-07-18] MEDS: SIMVASTATIN 20 MG TABLET PO SCH (20:49)
[2016-07-18] MEDS: SENNOSIDES 1 TABLET PO SCH (20:49)
[2016-07-18] MEDS: AMITRIPTYLINE 25 MG TABLET PO SCH (20:49)
[2016-07-18] MEDS: PYRIDOXINE HCL PO SCH (20:50)
[2016-07-18] MEDS: MELATONIN PO SCH (20:50)
[2016-07-18] MEDS: INSULIN GLARGINE, HUMAN 1 UNIT/0.01 ML SQ SCH (20:50)
[2016-07-18] MEDS: ACETAMINOPHEN 325 MG TABLET PO PRN (20:56)
[2016-07-18] MEDS ORDERED: ONDANSETRON 4 MG/2 ML VIAL IV PRN (21:47)
[2016-07-18] MEDS ORDERED: NALOXONE HCL 0.4 MG/ML VIAL IV PRN (21:47)
[2016-07-18] MEDS ORDERED: MAGNESIUM HYDROXIDE 30 ML ORAL.SUSP PO PRN (21:47)
[2016-07-18] MEDS ORDERED: DEXTROSE 50% 50 ML VIAL IV PRN (21:47)
[2016-07-18] MEDS ORDERED: DOCUSATE SODIUM 100 MG CAPSULE PO PRN (21:47)
[2016-07-19] MEDS: 0.45 % SODIUM CHLORIDE 1,000 ML IV SCH ×4 (00:36→21:02)
[2016-07-19] MEDS ORDERED: ACETAMINOPHEN 325 MG TABLET PO ONE (02:19)
[2016-07-19 04:12] LABS: ALT/SGPT 8 U/l (0-40); Albumin 2.9 gm/dL (3.2-5.2); Alkaline Phosphatase 54 U/L (39-117); Bilirubin,Direct < 0.2 mg/dL (0.0-0.3); Blood Urea Nitrogen 41 mg/dl (8-23); Gamma Glutamyl Transpeptidase 10 U/L (8-61); Magnesium 1.8 mg/dL (1.6-2.5); Phosphorous 4.1 mg/dL (2.7-4.5); Uric Acid 6.5 mg/dL (2.5-8.0)
[2016-07-19] MEDS: PIPERACILLIN SODIUM/TAZOBACTAM 2.25 GM in DEXTROSE 5% IN WATER 50 ML IV SCH ×3 (05:45→17:49)
[2016-07-19] MEDS: 0.9 % SODIUM CHLORIDE 10 ML SYRINGE IV SCH ×3 (05:45→20:49)
[2016-07-19] MEDS: PANTOPRAZOLE 40 MG TABLET PO SCH (08:00)
[2016-07-19] MEDS: ACETAMINOPHEN 325 MG TABLET PO PRN ×2 (08:00→19:23)
[2016-07-19] MEDS: INSULIN LISPRO 1 UNIT/0.01 ML UNIT SQ SCH ×7 (08:10→20:49)
--- NOTE | 2016-07-19 08:15 | Operative Note ---
DATE OF OPERATION: 07/18/2016 PREOPERATIVE DIAGNOSES: 1. Infected pressure ulcers both heels, right posterior heel with obvious purulent drainage from the infected blister, which is ruptured. 2. Left heel devitalized skin with underlying collection of fluid. POSTOPERATIVE DIAGNOSIS: 1. Infected pressure ulcers both heels, right posterior heel with obvious purulent drainage from the infected blister, which is ruptured. 2. Left heel devitalized skin with underlying collection of fluid. OPERATION: Excision, debridement and deep tissue cultures for sensitivity. PROCEDURE NOTE: After obtaining informed consent, patient was taken to the operating room. Intravenous anesthesia analgesia was given. A timeout was called. The patient was very carefully positioned into the left lateral decubitus position. Both posterior heels, feet, ankles were widely cleaned, prepped and draped in a standard fashion. The wound dimensions are: 1. Right posterior calcaneal tuberosity decubitus 7 x 5 x 0.5 cm. 2. Left posterior heel blister 5 x 4 x 0.2 cm. Of the two, the right posterior calcaneal pressure ulcer is significant for purulence, tenderness and drainage. We proceeded to carry out an excision/debridement using pickup and scissors. All the devitalized skin was removed. Later the wound was carefully selectively debrided with a #4 curet. Deep tissue samples were obtained for gram stain and cultures. This area was covered with Xeroform gauze and reinforced with 4 x 4 fluff gauze, AMD Kerlix bandage and Coban. Similar procedure was carried out on the left posterior heel area. Both feet were further secured with Michael offloading productive boots. The procedure was well tolerated. Blood loss was 5 mL. Count of all swabs, instruments and needles was reported to be correct. VD:laron Job ID: [id number] Doc ID: [id number] Lukas Anderson MD
[2016-07-19] MEDS: DIVALPROEX SODIUM 250 MG TAB.ER.24H PO SCH ×2 (09:02→20:46)
[2016-07-19 09:03] LABS: Appearance,Urine HAZY; Bacteria,Urine 0 /hpf (0); Bilirubin,Urine NEG (NEG); Color,Urine STRAW; Glucose,Urine (UA) NEGATIVE (NEG); Leukocyte Esterase,Urine 250 /uL (NEG); Mucus,Urine FEW /hpf (0); Nitrate,Urine NEG (NEG); Protein,Urine 100 mg/dL (NEG); Specific Gravity,Urine 1.012 (1.000-1.035); Urine Blood NEG mg/dL (<0.03); Urine RBC 7 /hpf (0-1); Urine Squamous Epithelial Cell 2 /hpf (0-4); Urine WBC 64 /hpf (0-4); Urobilinogen,Urine NEG (NEG)
[2016-07-19] MEDS: HEPARIN 5,000 UNIT/ML VIAL SQ SCH ×2 (09:03→20:46)
[2016-07-19] MEDS: ASPIRIN 81 MG TAB.CHEW PO SCH (09:05)
[2016-07-19] MEDS: FUROSEMIDE 20 MG TABLET PO SCH (09:05)
[2016-07-19] MEDS: MULTIVIT,THER IRON,CA,FA & MIN 1 TABLET PO SCH (09:06)
[2016-07-19] MEDS: amLODIPine 5 MG TABLET PO SCH (09:06)
[2016-07-19] MEDS: PSYLLIUM HUSK 6 GM PACKET PO SCH (09:06)
[2016-07-19] MEDS: CYANOCOBALAMIN (VITAMIN B-12) 500 MCG TABLET PO SCH (09:06)
[2016-07-19] MEDS: ARIPIPRAZOLE 5 MG TABLET PO SCH (09:31)
[2016-07-19] MEDS: Solifenacin Succinate [Vesicare] 5 MG Tablet PO SCH (09:34)
[2016-07-19] MEDS: ASCORBIC ACID 500 MG TABLET PO SCH (09:36)
--- NOTE | 2016-07-19 09:49 | General Surgery Progress Note ---
Subjective Narrative: Note initiated : 07/19/16 at 9:44 am Service Date, if different from initiated Date: [] Patient: Herve Curry 76 y/o M admitted on 07/17/16 for Heel Pressure Ulcers Bilateral. Chief Complaint: []POD # 1. S/P Debridement of both heel pressure wounds / blisters. Patient had an uneventful night. Objective Temp Pulse Resp BP Pulse Ox 98.7 F 83 24 177/79 98 07/19/16 07:55 07/19/16 07:55 07/19/16 07:55 07/19/16 07:55 07/19/16 07:55 - Additional Data Intake & Output - Last 24 hours: Intake & Output 07/17/16 07/18/16 07/19/16 07/20/16 05:59 05:59 05:59 05:59 Intake Total 1340 / 1640 1622 / 1622 50 / 50 Output Total 4 / 4 6 / 6 Balance 1336 / 1636 1616 / 1616 50 / 50 Weight 202 lb 199 lb 8 oz 07/19/16 09:45 AVSS. No changes ERLIN. Dressing both feet are CDI and heels protectors in place. - Labs 07/18/16 03:08 07/19/16 03:05 Diabetes panel 07/18/16 07/19/16 Range/Units 10:50 03:05 Sodium 140 (133-145) mmol/L Potassium 4.7 4.4 (3.3-5.1) mmol/L Chloride 105 (96-108) mmol/L Carbon Dioxide 22 (22-30) mmol/L BUN 41 H (8-23) mg/dl Creatinine 2.2 H (0.7-1.2) mg/dl Glucose 87 (70-105) mg/dL Calcium 8.4 L (8.6-10.4) mg/dl AST 13 (0-37) U/l ALT 8 (0-40) U/l Alkaline Phosphatase 54 (39-117) U/L Total Protein 5.9 (5.9-8.4) gm/dL Albumin 2.9 L (3.2-5.2) gm/dL Triglycerides 110 (<150) mg/dl Calcium panel 07/19/16 Range/Units 03:05 Calcium 8.4 L (8.6-10.4) mg/dl Phosphorus 4.1 (2.7-4.5) mg/dL Albumin 2.9 L (3.2-5.2) gm/dL Pituitary panel 07/18/16 07/19/16 Range/Units 10:50 03:05 Sodium 140 (133-145) mmol/L Potassium 4.7 4.4 (3.3-5.1) mmol/L Chloride 105 (96-108) mmol/L Carbon Dioxide 22 (22-30) mmol/L BUN 41 H (8-23) mg/dl Creatinine 2.2 H (0.7-1.2) mg/dl Glucose 87 (70-105) mg/dL Calcium 8.4 L (8.6-10.4) mg/dl Adrenal panel 07/18/16 07/19/16 Range/Units 10:50 03:05 Sodium 140 (133-145) mmol/L Potassium 4.7 4.4 (3.3-5.1) mmol/L Chloride 105 (96-108) mmol/L Carbon Dioxide 22 (22-30) mmol/L BUN 41 H (8-23) mg/dl Creatinine 2.2 H (0.7-1.2) mg/dl Glucose 87 (70-105) mg/dL Calcium 8.4 L (8.6-10.4) mg/dl Total Bilirubin 0.2 (0.0-1.0) mg/dL AST 13 (0-37) U/l ALT 8 (0-40) U/l Alkaline Phosphatase 54 (39-117) U/L Total Protein 5.9 (5.9-8.4) gm/dL Albumin 2.9 L (3.2-5.2) gm/dL Medical - PN: A/P - Time Spent With Patient Total time spent is greater than 50% in coordination of care (as documented) at patient's floor/unit and/or counseling patient: Patient seen with Physical Therapist. Progress reviewed with Hospitalist Dr. Damian. He is progressing well from wound care / surgery point of view. IF patient is discharged or transferred to a facility, PLEASE arrange for a wound clinic f/u in ONE week. Wound Care. Change dressings 3 a week. Cleane with NS. Appli SILVERSORB gel and AMD Kerlix gauze, Bandage and DENITA wrap . Cover with protector / shoe. 25 - 35 minutes (1) Pressure ulcer, heel, left, unstageable Status: Acute Current Visit: Yes (2) Pressure ulcer, heel, right, unstageable Status: Acute Current Visit: Yes (3) Decubitus ulcer of heel, bilateral Status: Acute Current Visit: Yes
--- NOTE | 2016-07-19 09:54 | Ultrasound Report ---
CLINICAL INFORMATION: Leg pain and swelling COMPARISON: None. FINDINGS: The entire deep venous system including the common femoral, superficial femoral, popliteal and paired trifurcation calf veins are easily compressible and show normal venous blood flow on color and spectral Doppler. No evidence of thrombus IMPRESSION: Negative exam - no evidence of deep vein thrombosis. Interpreted and Authenticated by: Jose Manuel Chow 07/19/16
[2016-07-19] MEDS ORDERED: VANCOMYCIN 1,000 MG in 0.9 % SODIUM CHLORIDE 250 ML IV ONE (10:00)
--- NOTE | 2016-07-19 13:18 | Internal Med Progress Note ---
Medical - PN: Subj Patient information: Note initiated : 07/19/16 at 1:18 pm Service Date, if different from initiated Date: [] Patient: Herve Curry 76 y/o M admitted on 07/17/16 for Heel Pressure Ulcers Bilateral. Chief Complaint: [] Interval history: July 17, 2016: History of present illness: Mr. Curry is a 75 year old male as sent over to the ER from the wound care clinic today, for significantly worsening bilateral heel decubiti, in the setting of uncontrolled diabetes. The patient also reported fever at the halfway, cough. is ER evaluation was fairly unremarkable except that he did have a significant drop in his hematocrit. the patient is mostly nonverbal He is currently living the [facility] , as his cannot really deal with his behavior issues anymore. He had mild heel decubiti before, and was followed at the wound care clinic, and was doing quite well. However over the last couple of weeks, his feels like he is spending all of his time in a wheelchair with his heels bumping up against the footplates She says the staff really have no luck keeping him in bed, as he gets very agitated when he cannot get out of bed. She believes they started him on twice a day morphine recently, as they decided perhaps some of his behaviors were due to pain, and that does seem to help somewhat. However, today she went to visit him, and he had large blisters on both heels and a very swollen and red left foot. He was sent in to see Dr. Anderson in the wound care clinic today, who sent him over to the emergency room for consideration of admission.The patient is really unable or unwilling to participate in the history. He denies significant pain. His says he has not complained of recent fevers or chills, headaches or dizziness, sore throat or cough, chest pain or shortness of breath, GI or symptoms. However she is not sure he would tell anyone if he did have those problems. She has noticed some increased lower extremity edema lately. July 18, 2016: - today, the patient remains mostly nonverbal. He apparently slept very well last night, after receiving a dose of by mouth amitriptyline. His is pleased that he actually slept for a change. He denies pain today. He has been noted to have an increasingly wet sounding cough, but he denies chest pain or shortness of breath, abdominal pain He apparently is a bit belligerent with the staff, and has not wanted to cooperate withgetting a urine sample into a urinal. -He was taken to the OR today for debridement of his heel ulcers. July 19, 2016: the patient was still sleeping when I entered the room this morning and his is very pleased that he is sleeping well since his amitriptyline was resumed. He did wake up, and did talk to us quite willingly today, which is new for him. His was quite pleased. He denies pain, chest pain or palpitations or shortness of breath, abdominal pain nausea or vomiting, diarrhea or dysuria. he does note some pain in his heels if they're touched. - Constitutional Vitals: Vital Signs Temp Pulse Resp BP Pulse Ox 98.7 F 81 24 160/79 98 07/19/16 12:00 07/19/16 12:00 07/19/16 12:00 07/19/16 12:00 07/19/16 12:00 Period Temp Pulse Resp BP Sys/Yoon Pulse Ox Last 24 Hr 97.9 F-99.8 F 70-100 20-28 155-177/31-80 92-98 Intake and Output 07/18/16 07/19/16 07/19/16 21:59 05:59 13:59 Intake Total 230 / 230 350 / 350 300 / 300 Output Total 4 / 4 2 / 2 Balance 226 / 226 348 / 348 300 / 300 Weight 199 lb 8 oz Intake & Output: Intake & Output 07/18/16 07/19/16 07/19/16 21:59 05:59 13:59 Intake Total 230 / 230 350 / 350 300 / 300 Output Total 4 / 4 2 / 2 Balance 226 / 226 348 / 348 300 / 300 Weight 199 lb 8 oz Intake: IV 50 / 50 50 / 50 300 / 300 Dextrose 5% in Water 50 50 / 50 50 / 50 50 / 50 ml @ 100 mls/hr IV Q6 RUTH with Zosyn 2.25 gm Rx#: [id number] Sodium Chloride 0.9% 250 250 / 250 ml @ 250 mls/hr IV ONCE ONE with Vancomycin 1,000 mg Rx#:[id number] Oral 180 / 180 300 / 300 Output: # of times incontinent of 4 / 4 2 / 2 urine Other: Meal Dinner Percent of Meal Consumed 75% # Voids 2 3 Exam: the patient is awake and alert, and in no acute distress. Neck is supple without obvious lymphadenopathy or JVD. Cardiac exam shows regular rate and rhythm. Lungs have scattered crackles, but overall appear clearer than yesterday, with just some upper airway noise. Abdomen: Is soft and nontender. Extremities:the right leg remains fairly markedly swollen The left lower extremity shows decreased erythema and edema. Both heels are bandaged and dressings are clean and dry. Neurologic: The patient is much more awakeand conversational today. Medical - PN: Obj Da - Labs CBC & Chem 7: 07/18/16 03:08 07/19/16 03:05 Labs: Abnormal Lab Results 07/19/16 07/19/16 07/18/16 08:14 03:05 03:08 RBC Hgb Hct RDW Seg Neutrophils % Lymphocytes % WBC Morphology Vacuolated Monocytes RBC Morphology Anisocytosis Potassium 5.5 H BUN 41 H 57 H Creatinine 2.2 H 2.5 H Glucose 125 H Calcium 8.4 L Albumin 2.9 L 3.1 L Urine Protein 100 A Urine Ketones 5/tr A Ur Leukocyte Esterase 250 A Urine RBC 7 H Urine WBC 64 H 07/18/16 03:08 RBC 3.15 L Hgb 8.9 L Hct 27.8 L RDW 15.1 H Seg Neutrophils % 79 H Lymphocytes % 11 L WBC Morphology Abnorm A Vacuolated Monocytes 1+ A RBC Morphology Abnorm A Anisocytosis 1+ A Potassium BUN Creatinine Glucose Calcium Albumin Urine Protein Urine Ketones Ur Leukocyte Esterase Urine RBC Urine WBC lactic acid is normal at 0.9 BNP is elevated at 1170 Right foot x-ray shows diffuse forefoot and midfoot soft tissue swelling suggestive of edema or cellulitis. X-ray of the left foot has similar findings. chest x-ray shows mild stable cardiomegaly, and otherwise no acute disease. wound culture Gram stain shows rare polys and moderate gram-positive cocci. Culture is still pending. blood cultures are negative so far. venous Doppler of the right leg shows no evidence of DVT. Meds: Medications Acetaminophen (Tylenol) 650 mg PO Q6HP PRN PRN Reason: PAIN/FEVER > 101 Last Admin: 07/19/16 08:00 Dose: 650 mg Amitriptyline HCl (Elavil) 25 mg PO QHS [facility] Amlodipine Besylate (Norvasc) 5 mg PO QDAY [facility] Last Admin: 07/19/16 09:06 Dose: 5 mg Ascorbic Acid (Vitamin C) 1,000 mg PO DAILY [facility] Last Admin: 07/19/16 09:36 Dose: 1,000 mg Aspirin (Aspirin) 324 mg PO QDAY [facility] Last Admin: 07/19/16 09:05 Dose: 324 mg Cyanocobalamin (Vitamin B-12) 1,000 mcg PO DAILY [facility] Last Admin: 07/19/16 09:06 Dose: 1,000 mcg Dextrose (Dextrose 50%) 0 ml IV UD PRN PRN Reason: Hypoglycemia Diagnostic Test (Pha) (Accu-Chek) 1 each FS ACHS [facility] Last Admin: 07/19/16 08:09 Dose: 1 each Divalproex Sodium (Depakote Er) 250 mg PO BID [facility] Last Admin: 07/19/16 09:02 Dose: 250 mg Docusate Sodium (Colace) 100 mg PO BID PRN PRN Reason: Constipation Furosemide (Lasix) 20 mg PO QAM [facility] Last Admin: 07/19/16 09:05 Dose: 20 mg Heparin Sodium (Porcine) (Heparin) 5,000 unit SQ Q12 [facility] Last Admin: 07/19/16 09:03 Dose: 5,000 unit Piperacillin Sod/Tazobactam (Sod 2.25 gm/ Dextrose) 50 mls @ 100 mls/hr IV Q6 [facility] Last Infusion: 07/19/16 06:20 Dose: Infused Sodium Chloride (Sodium Chloride 0.45%) 1,000 mls @ 100 mls/hr IV .Q10H [facility] Last Admin: 07/19/16 01:28 Dose: 100 mls/hr Insulin Glargine (Lantus) 25 unit SQ HS [facility] Insulin Human Lispro (Humalog) 0 unit SQ ACHS [facility] PRN Reason: Protocol Last Admin: 07/19/16 08:10 Dose: Not Given Insulin Human Lispro (Humalog) 15 unit SQ TIDAC [facility] Last Admin: 07/19/16 08:15 Dose: 15 unit Iron Carb/Multivit/Concession Manager/Folic Acid (Multivitamin W/Minerals) 1 tab PO DAILY [facility] Last Admin: 07/19/16 09:06 Dose: 1 tab Magnesium Hydroxide (Milk Of Magnesia) 30 ml PO DAILYP PRN PRN Reason: Constipation Morphine Sulfate (Morphine) 1 mg IV Q4HP PRN PRN Reason: Pain Naloxone HCl (Narcan) 0.1 mg IV Q2MIN PRN PRN Reason: Opiate Reversal Ondansetron HCl (Zofran) 4 mg IV Q6HP PRN PRN Reason: Nausea And Vomiting Pantoprazole Sodium (Protonix) 40 mg PO QAMAC [facility] Last Admin: 07/19/16 08:00 Dose: 40 mg Solifenacin Succinate [Vesicare] 5 Mg Tablet 1 dose PO DAILY [facility] Last Admin: 07/19/16 09:34 Dose: Not Given Melatonin/Pyridoxine Hcl (B6) [Melatonin 3 Mg Tab 2 dose PO HS [facility] Psyllium Hydrophilic Mucilloid (Metamucil) 6 gm PO DAILY [facility] Last Admin: 07/19/16 09:06 Dose: 6 gm Senna (Senokot) 2 tab PO HS [facility] Simvastatin (Zocor) 20 mg PO HS [facility] Sodium Chloride (Saline Flush) 10 ml IV Q8 [facility] Last Admin: 07/19/16 05:45 Dose: Not Given Medical - PN: A/P - Time Spent With Patient Total time spent is greater than 50% in coordination of care (as documented) at patient's floor/unit and/or counseling patient: (1) Decubitus ulcer of heel, bilateral Status: Acute Current Visit: Yes (2) DM (diabetes mellitus), type 2, uncontrolled Status: Acute Current Visit: Yes (3) History of CVA (cerebrovascular accident) Status: Acute Current Visit: Yes (4) CKD (chronic kidney disease) Status: Acute Current Visit: Yes (5) Anemia of acute infection Status: Acute Current Visit: Yes - Narrative A/P Narrative: #1. Infectious disease. -This patient presents with bilateral foot swelling suggestive of cellulitis, in the setting of uncontrolled diabetes. He also reports recent fever, and does have a history of a UTI.urine and blood cultures are pending. -he is now status post debridement. Continue IV Zosyn and vancomycin. -continue IV antibiotics, and local wound care. Dr. Anderson feels the patient may be ready for discharge tomorrow. -cultures are pending. #2. Renal. This patient presents with acute on chronic renal insufficiency, associated with hyperkalemia. I think this is starting to improve today. Potassium is also normalized. . #3. Endocrine. -Type 2 diabetes, poorly controlled, as evidenced by elevated A1c. Continue insulin and additional sliding scale. glucoses are mproved today. -Carbohydrate consistent diet. #4. Hematologic. -Anemia chronic, with fairly acute worsening. check stool cards. The patient may well have bone marrow suppression. #5. History of chronic constipation. #6. History of shingles. #7. Neurologic. -Patient has history of past stroke. -He has reported dementia and some behavior issues at the halfway. We did resume his low-dose amitriptyline here, and he is sleeping much better with that and seems to be in a better mood when he wakes up. His would like for him to be able to continue that when he returns to the halfway. #8. CODE STATUS: The patient's says she wants to discuss this further with her sons She is leaning towards a no code order, but is not quite ready to give that order. #9. Ongoing swelling of the right lower extremity, and the patient is quite sedentary. however, venous Dopplers negative for DVT. continue subcutaneous heparin for DVT prophylaxis. Approximately 30 minutes has been spent so far today, reviewing test results, interviewing and examining the patient, reviewing plan of care with his , and then reviewing his case with Dr. Anderson. Medical - PN: Qual - VTE Deep Vein Thrombosis/Pulmonary Embolism Present on Admission: No
--- NOTE | 2016-07-19 16:20 | Surgical Pathology Report ---
HISTOLOGY SPECIMEN MICROSCOPIC DIAGNOSIS SOFT TISSUE, RIGHT HEEL PRESSURE ULCER, BIOPSY: -- EPIDERMAL NECROSIS WITH DIFFUSE ACUTE AND CHRONIC INFLAMMATION. (ACP:sln) PROCEDURAL IMPRESSION Pressure ulcer right heel, not stageable. GROSS DESCRIPTION Received in formalin labeled right heel, are two cota pieces of skin. The first is 1.2 x 1.0 by less than 0.1 cm. Near one edge there is a lightly discolored area. It is 0.6 x 0.2 by less than 0.1 cm. The margin is inked black. The second piece of skin is 2.9 x 3.0 by less than 0.1 cm. There are two discolored areas. The first is a pink-purple area. It is 1.1 x 0.6 by less than 0.1 cm and approximately 0.5 cm from this there is a darker pigmented area. It is 0.7 x 0.2 by less than 0.1 cm. The margin is inked black. Sections submitted in two cassettes: A1 - entire first piece of skin; A2 - area representative sections from second fragment. (SCB:adj) Electronically Signed by: Tanvir Huitron M.D.
[2016-07-19] MEDS ORDERED: INSULIN GLARGINE, HUMAN 1 UNIT/0.01 ML SQ SCH (21:00)
[2016-07-19] MEDS ORDERED: SENNOSIDES 1 TABLET PO SCH (21:00)
[2016-07-19] MEDS ORDERED: MELATONIN PO SCH (21:00)
[2016-07-19] MEDS ORDERED: SIMVASTATIN 20 MG TABLET PO SCH (21:00)
[2016-07-19] MEDS ORDERED: AMITRIPTYLINE 25 MG TABLET PO SCH (21:00)
[2016-07-19] MEDS ORDERED: PYRIDOXINE HCL PO SCH (21:00)
[2016-07-20] MEDS: PIPERACILLIN SODIUM/TAZOBACTAM 2.25 GM in DEXTROSE 5% IN WATER 50 ML IV SCH ×3 (00:08→11:38)
[2016-07-20] MEDS: ACETAMINOPHEN 325 MG TABLET PO PRN (05:01)
[2016-07-20] MEDS: 0.45 % SODIUM CHLORIDE 1,000 ML IV SCH (05:03)
[2016-07-20] MEDS: 0.9 % SODIUM CHLORIDE 10 ML SYRINGE IV SCH (05:33)
[2016-07-20] MEDS: PANTOPRAZOLE 40 MG TABLET PO SCH (07:42)
[2016-07-20 08:07] LABS: Vancomycin,Random 14.8 ug/ml
[2016-07-20] MEDS: INSULIN LISPRO 1 UNIT/0.01 ML UNIT SQ SCH ×4 (08:47→12:57)
[2016-07-20] MEDS ORDERED: VANCOMYCIN 1,000 MG in 0.9 % SODIUM CHLORIDE 250 ML IV SCH (09:00)
[2016-07-20] MEDS: PSYLLIUM HUSK 6 GM PACKET PO SCH (09:21)
[2016-07-20] MEDS: ASCORBIC ACID 500 MG TABLET PO SCH (09:22)
[2016-07-20] MEDS: DIVALPROEX SODIUM 250 MG TAB.ER.24H PO SCH (09:22)
[2016-07-20] MEDS: ASPIRIN 81 MG TAB.CHEW PO SCH (09:22)
[2016-07-20] MEDS: FUROSEMIDE 20 MG TABLET PO SCH (09:23)
[2016-07-20] MEDS: MULTIVIT,THER IRON,CA,FA & MIN 1 TABLET PO SCH (09:23)
[2016-07-20] MEDS: amLODIPine 5 MG TABLET PO SCH (09:23)
[2016-07-20] MEDS: CYANOCOBALAMIN (VITAMIN B-12) 500 MCG TABLET PO SCH (09:23)
[2016-07-20] MEDS: HEPARIN 5,000 UNIT/ML VIAL SQ SCH (09:33)
[2016-07-20] MEDS: Solifenacin Succinate [Vesicare] 5 MG Tablet PO SCH (09:41)
[2016-07-20] MEDS: ARIPIPRAZOLE 5 MG TABLET PO SCH (09:41)
--- NOTE | 2016-07-20 11:26 | Discharge Summary ---
Medical - DS: Prov Patient information: Note initiated : 07/20/16 at 11:17 am Service Date, if different from initiated Date: [] Patient: Herve Curry 76 y/o M admitted on 07/17/16 for Heel Pressure Ulcers Bilateral. Chief Complaint: [] Date of admission: 07/17/16 15:46 Discharge date: 07/20/16 Primary care physician: [dr. Serafin English, phone [phone]] Admitting clinician: Sabi Palencia Consults: 07/17/16 16:46 Consult to Physician [CONS] Routine Comment: Consulting Provider: Lukas Anderson Reason For Exam: Physician to Consult Attending physician on discharge: Sabi Palencia Medical - DS: Meds - Discharge Medications Prescriptions: Piperacillin Sodium/Tazobactam [Zosyn 3.375 Gram Vial] 3.375 gm IV Q6 #1 vial Active and Home Medications: Home Medications Aripiprazole [Abilify] 10 mg PO QAM 07/17/16 [History Confirmed 07/17/16 Last Taken 07/17/16 08:00] Insulin Aspart [Novolog Flexpen] 15 unit SQ TID 07/17/16 [History Confirmed 09/28 Last Taken 07/17/16 08:00] Melatonin/Pyridoxine HCl (B6) [Melatonin 3 mg Tablet] 2 each PO QHS 07/17/16 [ History Confirmed 07/17/16 Last Taken 07/16/16 21:00] Polyethylene Glycol 3350 [Miralax] 17 gm PO ONCE 07/17/16 [History Confirmed 09/28 Last Taken 07/17/16 08:00] Valproic Acid (As Sodium Salt) [Valproic Acid] 250 mg PO BID 07/17/16 [History Confirmed 07/17/16 Last Taken 07/17/16 08:00] Vitamin E [Vitamin E] 800 mg QAM 07/17/16 [History Confirmed 07/17/16 Last Taken 07/17/16 08:00] Amitriptyline [Elavil] 1 tab PO DAILY 07/18/16 [History Confirmed 07/18/16 Last Taken 07/17/16] Cyanocobalamin (Vitamin B-12) [Vitamin B-12] 1,000 mcg SL DAILY 07/18/16 [ History Confirmed 07/18/16 Last Taken 07/16/16] Docosahexanoic Acid/Epa [Fish Oil Concentrate Softgel] 350 mg PO DAILY 07/18/16 [History Confirmed 07/18/16 Last Taken 07/16/16] Furosemide [Lasix] 40 mg PO DAILY 07/18/16 [History Confirmed 07/18/16 Last Taken 07/17/16] Losartan [Cozaar] 1 tab PO DAILY 07/18/16 [History Confirmed 07/18/16 Last Taken 07/17/16] Simvastatin [Zocor] 1 tab PO HS 07/18/16 [History Confirmed 07/18/16 Last Taken 07/17/16] Vitamin A 25,000 unit PO HS 07/18/16 [History Confirmed 07/18/16 Last Taken 08/31] amLODIPine [Norvasc] 5 mg PO DAILY 07/18/16 [History Confirmed 07/18/16 Last Taken 07/17/16] Active Medications Acetaminophen (Tylenol) 650 mg PO Q6HP PRN PRN Reason: PAIN/FEVER > 101 Last Admin: 07/20/16 05:01 Dose: 650 mg Amitriptyline HCl (Elavil) 25 mg PO QHS [facility] Last Admin: 07/19/16 20:46 Dose: 25 mg Amlodipine Besylate (Norvasc) 5 mg PO QDAY [facility] Last Admin: 07/20/16 09:23 Dose: 5 mg Ascorbic Acid (Vitamin C) 1,000 mg PO DAILY [facility] Last Admin: 07/20/16 09:22 Dose: 1,000 mg Aspirin (Aspirin) 324 mg PO QDAY [facility] Last Admin: 07/20/16 09:22 Dose: 324 mg Cyanocobalamin (Vitamin B-12) 1,000 mcg PO DAILY [facility] Last Admin: 07/20/16 09:23 Dose: 1,000 mcg Dextrose (Dextrose 50%) 0 ml IV UD PRN PRN Reason: Hypoglycemia Diagnostic Test (Pha) (Accu-Chek) 1 each FS ACHS [facility] Last Admin: 07/20/16 08:47 Dose: 1 each Divalproex Sodium (Depakote Er) 250 mg PO BID [facility] Last Admin: 07/20/16 09:22 Dose: 250 mg Docusate Sodium (Colace) 100 mg PO BID PRN PRN Reason: Constipation Furosemide (Lasix) 20 mg PO QAM [facility] Last Admin: 07/20/16 09:23 Dose: 20 mg Heparin Sodium (Porcine) (Heparin) 5,000 unit SQ Q12 [facility] Last Admin: 07/20/16 09:33 Dose: 5,000 unit Piperacillin Sod/Tazobactam (Sod 2.25 gm/ Dextrose) 50 mls @ 100 mls/hr IV Q6 [facility] Last Admin: 07/20/16 05:33 Dose: 100 mls/hr Sodium Chloride (Sodium Chloride 0.45%) 1,000 mls @ 100 mls/hr IV .Q10H [facility] Last Admin: 07/20/16 05:03 Dose: Not Given Vancomycin HCl 1,000 mg/ (Sodium Chloride) 250 mls @ 250 mls/hr IV DAILY [facility] Last Admin: 07/20/16 09:46 Dose: 250 mls/hr Insulin Glargine (Lantus) 25 unit SQ HS [facility] Last Admin: 07/19/16 20:48 Dose: 25 unit Insulin Human Lispro (Humalog) 0 unit SQ ACHS [facility] PRN Reason: Protocol Last Admin: 07/20/16 08:47 Dose: Not Given Insulin Human Lispro (Humalog) 15 unit SQ TIDAC [facility] Last Admin: 07/20/16 09:32 Dose: 15 unit Iron Carb/Multivit/[place]/Folic Acid (Multivitamin W/Minerals) 1 tab PO DAILY [facility] Last Admin: 07/20/16 09:23 Dose: 1 tab Magnesium Hydroxide (Milk Of Magnesia) 30 ml PO DAILYP PRN PRN Reason: Constipation Morphine Sulfate (Morphine) 1 mg IV Q4HP PRN PRN Reason: Pain Naloxone HCl (Narcan) 0.1 mg IV Q2MIN PRN PRN Reason: Opiate Reversal Ondansetron HCl (Zofran) 4 mg IV Q6HP PRN PRN Reason: Nausea And Vomiting Pantoprazole Sodium (Protonix) 40 mg PO QAMAC [facility] Last Admin: 07/20/16 07:42 Dose: 40 mg Solifenacin Succinate [Vesicare] 5 Mg Tablet 1 dose PO DAILY [facility] Last Admin: 07/20/16 09:41 Dose: Not Given Melatonin/Pyridoxine Hcl (B6) [Melatonin 3 Mg Tab 2 dose PO HS [facility] Last Admin: 07/19/16 20:46 Dose: Not Given Psyllium Hydrophilic Mucilloid (Metamucil) 6 gm PO DAILY [facility] Last Admin: 07/20/16 09:21 Dose: 6 gm Senna (Senokot) 2 tab PO HS [facility] Last Admin: 07/19/16 20:46 Dose: 2 tab Simvastatin (Zocor) 20 mg PO HS [facility] Last Admin: 07/19/16 20:46 Dose: 20 mg Sodium Chloride (Saline Flush) 10 ml IV Q8 [facility] Last Admin: 07/20/16 05:33 Dose: Not Given Medical - DS: Hosp Hospital course: Mr. Curry is a 76 year old male July 17, 2016: History of present illness: Mr. Curry is a 75 year old male as sent over to the ER from the wound care clinic today, for significantly worsening bilateral heel decubiti, in the setting of uncontrolled diabetes. The patient also reported fever at the [facility], cough. is ER evaluation was fairly unremarkable except that he did have a significant drop in his hematocrit. the patient is mostly nonverbal He is currently living [facility] , as his cannot really deal with his behavior issues anymore. He had mild heel decubiti before, and was followed at the wound care clinic, and was doing quite well. However over the last couple of weeks, his feels like he is spending all of his time in a wheelchair with his heels bumping up against the footplates She says the staff really have no luck keeping him in bed, as he gets very agitated when he cannot get out of bed. She believes they started him on twice a day morphine recently, as they decided perhaps some of his behaviors were due to pain, and that does seem to help somewhat. However, today she went to visit him, and he had large blisters on both heels and a very swollen and red left foot. He was sent in to see Dr. Anderson in the wound care clinic today, who sent him over to the emergency room for consideration of admission.The patient is really unable or unwilling to participate in the history. He denies significant pain. His says he has not complained of recent fevers or chills, headaches or dizziness, sore throat or cough, chest pain or shortness of breath, GI or symptoms. However she is not sure he would tell anyone if he did have those problems. She has noticed some increased lower extremity edema lately. July 18, 2016: - today, the patient remains mostly nonverbal. He apparently slept very well last night, after receiving a dose of by mouth amitriptyline. His is pleased that he actually slept for a change. He denies pain today. He has been noted to have an increasingly wet sounding cough, but he denies chest pain or shortness of breath, abdominal pain He apparently is a bit belligerent with the staff, and has not wanted to cooperate withgetting a urine sample into a urinal. -He was taken to the OR today for debridement of his heel ulcers. July 19, 2016: the patient was still sleeping when I entered the room this morning and his is very pleased that he is sleeping well since his amitriptyline was resumed. He did wake up, and did talk to us quite willingly today, which is new for him. His was quite pleased. He denies pain, chest pain or palpitations or shortness of breath, abdominal pain nausea or vomiting, diarrhea or dysuria. he does note some pain in his heels if they're touched. July 20, 2016: the patient is awake and alert when into the room this morning. His says he is confused, but otherwisecooperative and conversational. He denies any pain. He denies chest pain or palpitations, shortness of breath. However, he also denies cough, but clearly has a moist coughwhile I'm in the room. He denies abdominal pain, diarrhea or constipation , dysuria. He remains very forgetful. He has, however, sleeping quite well at night, after receiving low-dose oral amitriptyline at night. This also seems to help keep him calm her and more cooperative during the day. His feels that he would really benefit from continuing this at the [facility] although the [facility]pc is reluctant to give him this medication. She also notes that if they could find him a television that he could watch and here, that he would be more likely to stay in bed She says they cannot turn the TV up loud enough for him where he is, because his roommate complains about the noise. -Otherwise, he remains afebrile Room air O2 saturations are good, in spite of his wet sounding cough. Blood pressures continue to run on the high side, ranging from 150s to 170s systolic. -he did apparently refuse physical therapy this morning. -he does still pull at this stage boot heel protectors occasionally, but the nurses say if theystop him, and explained to him why he needs them, that he will leave them alone for long periods. He will need to keep these on at the [facility], to protect his heel wounds. assessment and plan: #1. Infectious disease. -This patient presents with bilateral foot swelling suggestive of cellulitis, in the setting of uncontrolled diabetes. e also has a very wet sounding cough and coarse breath sounds. -he is now status post debridement. Continue IV Zosyn and vancomycin. his final Intra-Op cultures are still pending. Once these are available, he might be able to have his IV antibiotics discontinued, and just continue on with oral antibiotics. -He should follow-up with Dr. Alcaraz about 1 week to recheck his heel ulcers. - he can have the current dressings removed, every other day. He'll should be washed, and dried, and then apply Bactroban ointment, covered adaptic gauze, and then covered with dry gauze, and heel protectors. He should keep his heels elevated as much as possible. #2. Renal. This patient presents with acute on chronic renal insufficiency, associated with hyperkalemia. I think this is near baseline now. . #3. Endocrine. -Type 2 diabetes, poorly controlled, as evidenced by elevated A1c. Continue insulin and additional sliding scale. glucoses are improved today. -Carbohydrate consistent diet. #4. Hematologic. -Anemia chronic, with fairly acute worsening. check stool cards. The patient may well have bone marrow suppression. #5. History of chronic constipation. #6. History of shingles. #7. Neurologic. -Patient has history of past stroke. -He has reported dementia and some behavior issues at the [facility]. We did resume his low-dose amitriptyline here, and he is sleeping much better with that and seems to be in a better mood when he wakes up. His would like for him to be able to continue that when he returns to the [facility]. #8. CODE STATUS: The patient's says she wants to discuss this further with her sons She is leaning towards a no code order, but is not quite ready to give that order. #9. Ongoing swelling of the right lower extremity, and the patient is quite sedentary. however, venous Dopplers negative for DVT. continue subcutaneous heparin for DVT prophylaxis. - Time Spent with Patient Total time spent providing and/or coordinating discharge services: Greater than 30 minutes (was spent today, reviewing his case with hospital staff , reviewing his test results, interviewing and examining him, reviewing plan of care with his , and writing orders.) Medical - DS: Exam - Constitutional Vitals: Vital Signs Temp Pulse Resp BP BP BP Pulse Ox 07/20/16 07:15 98.0 F 76 18 153/69 96 07/20/16 04:00 98.4 F 80 16 178/77 94 07/20/16 00:00 98.5 F 69 18 157/76 95 07/19/16 20:00 99.3 F 77 20 144/73 93 07/19/16 12:00 98.7 F 81 24 160/79 98 Intake and Output 07/19/16 07/20/16 07/20/16 21:59 05:59 13:59 Intake Total 1100 / 1100 300 / 300 300 / 300 Output Total 2 / 2 2 / 2 Balance 1098 / 1098 298 / 298 300 / 300 Intake: IV 1100 / 1100 50 / 50 Sodium Chloride 0.45% 1, 1000 / 1000 000 ml @ 100 mls/hr IV . Q10H [facility] Rx#:[id number] Dextrose 5% in Water 50 100 / 100 50 / 50 ml @ 100 mls/hr IV Q6 [facility] with Zosyn 2.25 gm Rx#: [id number] Oral 250 / 250 300 / 300 Output: # of times incontinent of 2 / 2 2 / 2 urine Other: Meal Breakfast Percent of Meal Consumed 100% Feeding Ability Independent # Bowel Movements 1 Weight 200 lb Additional comments: the patient is awake and alert, and in no acute distress. Neck is supple without obvious lymphadenopathy or JVD. Cardiac exam shows regular rate and rhythm. Lungs have scattered crackles, but overall appear clearer than yesterday. Abdomen: Is soft and nontender. Extremities:the right leg remains fairly swollen The left lower extremity shows decreased erythema and edema. Both heels are bandaged and dressings are clean and dry. Neurologic: The patient is much more awake and conversational today. for the most part he, he has been cooperative, and remains in bed at our request. He does get a little frustrated with bathroom issues and cannot seem to use a urinal. Medical - DS: Data Labs on day of discharge: Labs from last 24 hours 07/20/16 07:00 Random Vancomycin 14.8 Vancomycin Dose Not Reportable Vanco Last Dose Time Not Reportable Preliminary micro results at discharge 07/18/16 13:37 Anaerobic Culture - Preliminary Foot - Right Wound Culture - Preliminary Strep agalactiae - (group b) 07/19/16 08:24 Urine Culture - Preliminary Urine - Clean Void Mid-Stream 07/18/16 13:42 Anaerobic Culture - Preliminary Foot - Right Wound Culture - Preliminary lactic acid is normal at 0.9 BNP is elevated at 1170 Right foot x-ray shows diffuse forefoot and midfoot soft tissue swelling suggestive of edema or cellulitis. X-ray of the left foot has similar findings. chest x-ray shows mild stable cardiomegaly, and otherwise no acute disease. wound culture Gram stain shows rare polys and moderate gram-positive cocci, and many gram-positive bacilli.. Culture is so far growing strep agalactiae, group B.susceptibility is not routinely performed. blood cultures are negative so far.. venous Doppler of the right leg shows no evidence of DVT. CBC from July 18 shows white blood cell count of 8900, hemoglobin 8.9, hematocrit 27.8, platelets 328, 1+ vacuolated melanocytes, 1+ anisocytosis hemistry panel from July 19 shows normal electrolytes, with BUNs 41, creatinine 2.2, total calcium 8.4 albumin of 2.9 urinalysis from July 19, [id number] of protein, 5 of ketones, leukocyte esterase 250, RBC 7, white BC 64 urine culture shows no growth so far. Medical - DS: A/P - Patient/Caregiver Discharge Instructions Activity: as per physical therapy Diet: Consistent Carbohydrate Additional Instructions: #1.keep feet elevated as much as possible. -Change heel wound dressings every other day. arcelia and dry, apply Bactroban ointment then Adaptic gauze, then dry gauze, then heel protector's #2. See Dr. Anderson in clinic for follow-up next week. #3. Because of clinical signs of possible pneumonia, continue IV Zosyn and vancomycin for the next day or 2, until the wound culture results are final. Dr. Anderson should receive final culture results, and he may change the patient over to oral antibiotics With current results, he could probably be changed over to oral Augmentin. - Problem Maintenance (1) Decubitus ulcer of heel, bilateral Status: Chronic (2) DM (diabetes mellitus), type 2, uncontrolled Status: Chronic Qualifiers: Diabetes mellitus complication status: with skin complications Diabetes mellitus usp insulin use: with usp use (3) History of CVA (cerebrovascular accident) Status: Inactive (4) CKD (chronic kidney disease) Status: Chronic (5) Anemia of acute infection Status: Inactive - Follow up Plan Follow up with: Serafin English MD [Primary Care Provider] - Lukas Anderson MD [Physician] - Disposition: [facility] Prognosis: Fair Rehab Potential: Fair Overall status at discharge: patient is not back to baseline Medical - DS: Qual - VTE Deep Vein Thrombosis/Pulmonary Embolism Present on Admission: No
--- NOTE | 2016-07-20 13:50 | General Surgery Progress Note ---
Subjective Patient reports: other (I saw the patient this morning and reviewed his progress. Subsequently spoke with Dr. Damian. Hospitalist) Narrative: Note initiated : 07/20/16 at 1:48 pm Service Date, if different from initiated Date: [] Patient: Herve Curry 76 y/o M admitted on 07/17/16 for Heel Pressure Ulcers Bilateral. Chief Complaint: [] Objective Temp Pulse Resp BP Pulse Ox 99.8 F H 85 22 175/84 94 07/20/16 12:40 07/20/16 12:40 07/20/16 12:40 07/20/16 12:40 07/20/16 12:40 VSS. NO changes in his clinical examination. Dressings of both heels are CDI Reviewed culture results. - Additional Data Intake & Output - Last 24 hours: Intake & Output 07/18/16 07/19/16 07/20/16 07/21/16 05:59 05:59 05:59 05:59 Intake Total 1340 / 1640 1622 / 1622 1700 / 1700 960 / 960 Output Total / 6 / 6 4 / 4 2 / 2 Balance 1336 / 1636 1616 / 1616 1696 / 1696 958 / 958 Weight 202 lb 199 lb 8 oz 200 lb - Labs 07/18/16 03:08 07/19/16 03:05 Medical - PN: A/P - Time Spent With Patient Total time spent is greater than 50% in coordination of care (as documented) at patient's floor/unit and/or counseling patient: Agree with D/C plans and f/u at wound clinic. Dressings may be left alone at this time. less than 15 minutes (1) Pressure ulcer, heel, left, unstageable Status: Acute Current Visit: Yes (2) Pressure ulcer, heel, right, unstageable Status: Acute Current Visit: Yes (3) Decubitus ulcer of heel, bilateral Status: Chronic Current Visit: Yes
== END 2016-07-20 13:10 ==
LOC: ED 12:14 → MEDSUR 12:14
PROVIDERS: ADMIT Internal Medicine; ATTEND Internal Medicine
PROC: IDWOUND (2016-07-18 12:41)

== ENCOUNTER 2016-11-13 16:45 | Inpatient (IN) ==
[2016-11-13] MEDS ORDERED: ONDANSETRON ODT 4 MG TABLET SL PRN (16:56)
[2016-11-13] MEDS ORDERED: ONDANSETRON 4 MG/2 ML VIAL IV PRN (16:56)
[2016-11-13] MEDS ORDERED: LACTOPEROXI/GLUC OXID/POT THIO 1 EACH GEL..EA. TOPICAL PRN (16:56)
[2016-11-13] MEDS ORDERED: 0.9 % SODIUM CHLORIDE 1,000 ML IV SCH (17:00)
--- NOTE | 2016-11-13 17:19 | Internal Med History&Physical ---
Medical - H&P: [facility] Patient information: Note initiated : 11/13/16 at 5:14 pm Service Date, if different from initiated Date: [] Patient: Herve Curry 76 y/o M admitted on 11/13/16 for Sepsis. Chief Complaint: [] History of present illness: MMr. Curry is a 76 year old male with h/o CVA, Dementia, bed ridden, Chr decub ulcers, CAD, CKD, who was admitted on 11/03 to the hospital for severe sepsis secondary to decubitus ulceration. HE had JANET on CKD on presentation. The patient was treated with broad spectrum antibiotics, . The patient was seen by Wound care and nephrology as consultations. Wound care debrided the wound 2- 3 times, wound vac was placed, the patient did show some improvement after debridement, but later patients condition worsened again. HE also had a urinary tract infection. There was also concern for recurrent aspiration leading to bouts of shortness of breath and hypoxia. Given his overall poor prognosis the family decided to withdraw care for the patient. His noted on multiple occasions that this is not the life he would have wanted. Patient was antibiotics were stopped and patient was placed under palliative care. After initiation of palliative care the patients condition improved and patient remained stable off oxygen for a few days. Given his overall stability decision was made to change his status from inpatient to swing bed The patient was predominantly non verbal and most of the decision making process was made by his and rest of family members. All members present were in the agreement with the plan. ROS unobtainable: due to mental status Medical - H&P: PM Medical history: Medical History Acute on chronic kidney failure (Acute) Decubitus ulcer, unstageable with infection (Acute) Sepsis (Acute) Acute on chronic renal failure (Acute) Cellulitis (Acute) Constipation (Acute) Contusion (Acute) Fracture of both hips (Acute) Hyperkalemia (Acute) Left-sided weakness (Acute) Pressure ulcer, heel, left, unstageable (Acute) Pressure ulcer, heel, right, unstageable (Acute) Renal insufficiency (Acute) Shingles (Acute) UTI (urinary tract infection) (Acute) UTI (urinary tract infection) (Acute) Anxiety (Chronic) Atherosclerotic heart disease (Chronic) 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) CKD (chronic kidney disease) (Chronic) CVA (cerebrovascular accident) (Chronic) Cerebral infarction (Chronic) Closed hip fracture (Chronic) Closed rib fracture (Chronic) Contusion of back (Chronic) Coronary artery disease (Chronic) DM (diabetes mellitus), type 2, uncontrolled (Chronic) Decubitus Ulcer (Chronic) Decubitus ulcer of heel, bilateral (Chronic) Diabetes mellitus (Chronic) Diabetes mellitus, type II (Chronic) Essential hypertension (Chronic) Fracture of ankle, closed (Chronic) Hemiplegia affecting left nondominant side (Chronic) History of malignant neoplasm of skin (Chronic) History of skin cancer (Chronic) Hyperlipidemia (Chronic) Low back pain (Chronic) Lumbosacral spondylosis without myelopathy (Chronic) Right femoral fracture (Chronic) TIA (transient ischemic attack) (Chronic) Urinary incontinence (Chronic) Vascular dementia (Chronic) Anemia of acute infection (Inactive) History of CVA (cerebrovascular accident) (Inactive) Surgical history: Past Surgical History History of appendectomy (Chronic) History of colonoscopy (Chronic) History of heart artery stent (Chronic) History of hernia surgery (Chronic) History of intravascular stent placement (Chronic) History of knee replacement (Chronic) History of knee surgery (Chronic) History of total knee replacement (Chronic) History of transurethral resection of prostate (Chronic) S/P TURP (status post transurethral resection of prostate) (Chronic) S/P insertion of spinal cord stimulator (Chronic) Status post debridement (Chronic) Family history: reviewed and not pertinent Medical - H&P: Meds Home Medications Medication Instructions Recorded Confirmed Type blood sugar diagnostic strips See Dose Instructions .ROUTE 02/22/15 11/13/16 History .MEDSUPPLY omeprazole 20 mg capsule,delayed 20 mg PO ACB 02/22/15 11/13/16 History release ascorbate calcium 500 mg tablet 1,000 mg PO DAILY 07/05/15 11/13/16 History Sennosides [Senna Laxative] 2 tab PO HS 04/11/16 11/13/16 History Aripiprazole [Abilify] 10 mg PO QAM 07/17/16 11/13/16 History Polyethylene Glycol 3350 [Miralax] 17 gm PO DAILY 07/17/16 11/13/16 History Valproic Acid (As Sodium Salt) 250 mg PO BID 07/17/16 11/13/16 History [Valproic Acid] Vitamin E 800 units PO DAILY 07/17/16 11/13/16 History Cyanocobalamin (Vitamin B-12) 1,000 mcg SL DAILY 07/18/16 11/13/16 History [Vitamin B-12] Simvastatin [Zocor] 1 tab PO HS 07/18/16 11/13/16 History amLODIPine [Norvasc] 5 mg PO DAILY 07/18/16 11/13/16 History Acetaminophen [Tylenol] 650 mg PO Q6HP PRN #0 tablet 07/20/16 11/13/16 Rx Amitriptyline [Elavil] 25 mg PO QHS tab 07/20/16 11/13/16 Rx Docusate Sodium [Colace] 100 mg PO BID PRN #0 cap 07/20/16 11/13/16 Rx bisacodyl 10 mg rectal suppository 10 mg MI DAILYP PRN 09/03/16 11/13/16 History polyvinyl alcohol 1.4 % eye drops 2 drp OPHTHALMIC Q1H PRN ml 09/03/16 History acetaminophen 500 mg capsule 500 mg PO HSP PRN cap 10/03/16 11/13/16 History aspirin 325 mg tablet 325 mg PO QDAY 10/03/16 11/13/16 History furosemide 20 mg tablet 20 mg PO BID tab 10/03/16 11/13/16 History insulin aspart 100 unit/mL 15 units SC TIDCC 10/03/16 11/13/16 History subcutaneous pen insulin glargine 100 unit/mL 10 unit SUB-Q QHS ml 10/03/16 11/13/16 History subcutaneous solution morphine 10 mg/5 mL oral solution 5 mg PO BID ml 10/03/16 11/13/16 History Magnesium Hydroxide [Milk of 30 ml PO Q48HP PRN 11/03/16 11/13/16 History Magnesia] Melatonin 6 mg PO HS 11/03/16 11/13/16 History Multivit,Ther Iron,Ca,FA & Min 1 tab PO DAILY 11/03/16 11/13/16 History [Multivitamin W/Minerals] Na Phos,M-B/Na Phos,Di-Ba [Fleets 1 dose MI Q3DP PRN 11/03/16 11/13/16 History Adult] Sodium Polystyrene Sulfonate 15 gm PO TH@0900 11/03/16 11/13/16 History [Kayexalate] Allergies Allergy/AdvReac Type Severity Reaction Status Date / Time meperidine [From Demerol] AdvReac Intermediate Agitated Verified 10/03/16 11:07 quetiapine [From Seroquel] AdvReac Intermediate Agitated Verified 10/03/16 11:07 Medical - H&P: Exam - Constitutional Vitals: Temp Pulse BP Pulse Ox 98.7 F 88 109/64 85 L 11/13/16 16:56 11/13/16 16:56 11/13/16 16:56 11/13/16 16:56 Exam: Constitutional; Afebrile, non verbal drowsy. Eyes- , No periorbital swelling Ears- Ext ear normal, hearing normal to conversation. Neck- Midline trachea, supple Respiratory system: Air Entry equal on both sides, yobani conducted breath sounds , abdominal breathing, CVS- Rate rhythm regular tachycardic , S1,S2 heard, no gallop, no rub. Abdomen- Soft nontender abdomen, no organomegaly, no tenderness, no guarding or rigidity, RECLAMATION KETTLE TENDER- AOOx0, Medical - H&P: A/P - Narrative A/P Narrative: Palliative care, IV morphine, ativan for air hunger and anxiety. Morphine nebs if unable to get IV Management as per comfort care protocol No labs or invasive procedures. Social History - Social History marital status: service: Yes occupational status: retired - Service service: retired branch: [employer] - Tobacco smoking status: Former smoker
[2016-11-13] MEDS: LORazepam 2 MG/ML VIAL IV PRN (20:50)
[2016-11-13] MEDS: 0.9 % SODIUM CHLORIDE 10 ML SYRINGE IV SCH (20:51)
[2016-11-14] MEDS: LORazepam 2 MG/ML VIAL IV PRN ×3 (03:11→14:21)
[2016-11-14] MEDS: 0.9 % SODIUM CHLORIDE 10 ML SYRINGE IV SCH ×2 (05:15→14:14)
--- NOTE | 2016-11-14 16:23 | Death Note ---
Discharge Sum: Prov - Provider Patient information: Note initiated : 11/14/16 at 4:09 pm Service Date, if different from initiated Date: [] Patient: Herve Curry 76 y/o M admitted on 11/13/16 for Sepsis. Chief Complaint: [] Primary care physician: [f_Reg Prim Care Provider] Admitting clinician: Elizabeth Melendez Discharge Sum: Diag - PCOD Cause of : Severe sepsis Discharge Sum: Summary - Date and Time Date of admission: 11/13/16 16:49 Date of : 11/14/16 Time of : 15:26 - Summary Details: This is a 76 yr male with h/o decubitus ulcers, CVA with hemiplegia, dementia, presented to the Hospital initially with infected decub ulcer. He was being treated with broad spectrum antibiotics and local wound care. The patient condition initially improved but later deteriorated. He became short of breath , tachypenic, tachycardic, with worsening white count despite being on antibiotics. The patients family and sons decided that the patient needs to be in comfort care given his various co morbidities, poor overall quality of life. The patients was managed as palliative care, and was transferred to swing bed status. The patient was kept comfortable with ativan for anxiety and morphine for air hunger. The patient today at 15.26, family was at bedside. - Additional Data Confirmation of as documented by pronouncing clinician: no pulse, no respirations Family: at bedside Attending/PCP notified?: Yes Attending physician: [f_Reg Attending Provider] Was code activated?: No Autopsy requested?: No coroner/medical examiner notified?: No Organ bank notified?: Yes Advance directives?: Yes Hospice patient?: Yes
== END 2016-11-14 15:26 | disposition expired | DRG 871 ==
LOC: MEDSUR 16:49
PROVIDERS: ADMIT Internal Medicine; ATTEND Internal Medicine